=== PATIENT | female | born 1925 | race Caucasian/White ===

== ENCOUNTER 2016-11-09 16:46 | Emergency (ER) | payer MEDICARE, OTHER ==
[~2016-11-09] VITALS: Ht 141 cm; Wt 37.5 kg
[~2016-11-09 16:46] MED LIST: BRIM5DRO2 BOTH_EYES; LIPA1CAP PO; METO25TA6 PO; OXYC5TAB72 PO; PANT40TA3 PO; POLY17PO6 PO; WARF2TAB PO
[2016-11-09 17:03] VITALS: BP 115/59; PULSE 66; RESP 16; O2SAT 97
[2016-11-09] MEDS ORDERED: Ondansetron 2 mg/mL 2 mL Inj IV PRN (18:25)
--- NOTE | 2016-11-09 18:27 | ED.REPORT ---
HPI-General Illness Date of Service Nov 09, 2016 ED Provider: Lior Castillo MD An 89 year old female with a medical history including thoracic compression fractures, COPD, hypertension, and atrial fibrillation s/p pacemaker placement on Warfarin presents to the ED accompanied by her family with right-sided thoracic back pain onset three days ago. The pain began as "burning" between her shoulder blades, which slowly moved to the right. It is exacerbated by movement. The patient also reports shortness of breath and mild bilateral leg swelling (R>L). She denies fever, chest pain, recent trauma/injury, or other symptoms. The patient's Warfarin dose was recently increased but she has not been taking the full prescribed amount. She has had similar symptoms in the past. Nursing Notes Stated Complaint: RIGHT SHOULDER PAIN Chief Complaint: Back Pain or Injury Nursing Notes Reviewed: Yes Allergies: Coded Allergies: Penicillins (Verified Allergy, Severe, pt took once, rash all over body, ) erythromycin ethylsuccinate (Verified Allergy, Severe, 11/09/16) Cephalosporins (Verified Allergy, Unknown, 11/09/16) Sulfa (Sulfonamide Antibiotics) (Verified Allergy, Unknown, 11/09/16) Scheduled Brimonidine Tartrate (Alphagan P) 5 Ml Drops 1 GTT BOTH_EYES BID Lipase/Protease/Amylase (Creon DR) 6,000 Unit Capsule 1 CAPSULE PO TIDAC Metoprolol Tartrate (Metoprolol Tartrate) 25 Mg Tablet 12.5 MG PO BID Pantoprazole DR (Pantoprazole DR) 40 Mg Tablet.dr 40 MG PO DAILYAC Warfarin Sodium (Coumadin) 2 Mg Tablet 2 MG PO OT@17 Scheduled PRN Polyethylene Glycol 3350 (Miralax) 17 Gm Powd.pack 17 GM PO DAILY PRN PRN For Constipation oxyCODONE (oxyCODONE) 5 Mg Tablet 5 MG PO QID PRN PRN For Moderate Pain General Time Seen by MD: 18:24 Chief Complaint Back pain Hx Obtained From: Patient Arrived By: Walk-in Onset Occurred: 3 days ago Symptom Duration: Since onset Location: : Back Quality: Burning, Painful Severity: Current: Moderate Severity: Maximum: Moderate Exacerbated by: Moving affected area Pertinent Negative: Relieved by nothing Context Related History: Reports COPD, Reports GERD Recent Healthcare: No recent doctor visit Similar Sx Previous: Yes Past Medical History Past Medical History 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 Past Medical History Pacemaker insertion for atrial fibrillation in 2006 (anticoagulated on warfarin) Bladder infection Heartburn Hiatal hernia Glaucoma Multiple compression fracture - T11 and L1 Pancreas mass Reports: COPD, GERD, Hypertension, Transient ischemic attack Reports: Urinary tract infection Past Surgical History Bladder suspension Reports: Appendectomy, Cholecystectomy, Hysterectomy Reports: Pacemaker insertion Family History Negative for pancreas cancer Smoking History Current Some Day Smoker Social History Alcohol Use: Denies alcohol use Drug Use: Denies drug use Other Social History: Good social support, Lives alone Ambulatory Status Cane Review of Systems Full Review of Systems Constitutional: Denies: Fever Respiratory: Reports: Shortness of breath, Denies: Non-productive cough GI: Denies: Diarrhea, Vomiting Musculoskeletal: Reports: Back pain (Right-sided thoracic), Extremity swelling (Bilateral legs R>L) Complete sys rev & neg: except as marked. Physical Exam Vital Signs Vital Signs Date Time Temp Pulse Resp B/P Pulse Ox O2 Delivery O2 Flow Rate FiO2 11/09/16 21:23 36.8 60 20 134/90 97 Room Air 11/09/16 21:00 60 20 134/90 97 Room Air 11/09/16 20:12 61 16 121/73 98 Room Air 11/09/16 17:03 36.8 66 16 115/59 97 Room Air Initial VS: Reviewed Skin: Warm, Dry Neurologic: Alert, Oriented Psychiatric: Mood/affect normal, Behavior normal General/Constitutional: Awake, Alert Head / Eyes: Atraumatic, Normocephalic Respiratory / Chest: Breath sounds = bilat, No respiratory distress Wheezing / Retractions: Positive: Wheezing moderate (Scattered) Cardiovascular: Heart rate NL, Regular rhythm Heart Sounds / Murmur: Positive: Systolic murmur present.. (III/) Abdomen: Soft, Non-tender Flank / Spine / Paraspinal: Positive: Thoracic spine tender... (T-6) Lower Extremity / Pelvis / MS: Atraumatic Mild pitting pedal edema No cords present Interpretation & Diagnostics Lab Results Interpretation Result Diagram: 11/09/16184411/09/161844 Test 11/09/16 18:45 11/09/16 19:35 White Blood Count 7.3th/mm3 (3.8-10.1) Red Blood Count 3.88mil/mm3 (3.90-5.20) Hemoglobin 12.3g/dL (12.0-15.6) Hematocrit 36.7% (35.0-46.0) Mean Corpuscular Volume 94.6fL (81-100) Mean Corpuscular Hemoglobin 31.7pg (27.0-35.0) Mean Corpuscular Hemoglobin Concent 33.5% (32.0-37.0) Red Cell Distribution Width 14.6% (12.3-15.4) Platelet Count 196bil/L (150-400) Neutrophils (%) (Auto) 57.2% (40-74) Lymphocytes (%) (Auto) 31.0% (14-46) Monocytes (%) (Auto) 9.0% (4-12) Eosinophils (%) (Auto) 2.0% (0-5) Basophils (%) (Auto) 0.7% (0-3) Prothrombin Time 14.9sec (8.1-12.5) Prothromb Time International Ratio 1.38ratio Sodium Level 137mEq/L (134-144) Potassium Level 4.7mEq/L (3.5-5.2) Chloride Level 101mEq/L (97-108) Carbon Dioxide Level 22mmol/L (18-29) Blood Urea Nitrogen 32mg/dL (8-27) Creatinine 1.13mg/dL (0.57-1.00) Estimat Glomerular Filtration Rate 65mL/min (>59) Glucose Level 107mg/dL (60-99) Calcium Level 10.6mg/dL (8.5-10.1) Magnesium Level 2.1mg/dL (1.6-2.6) Total Bilirubin 0.2mg/dL (0.0-1.2) Aspartate Amino Transf (AST/SGOT) 21U/L (0-50) Alanine Aminotransferase (ALT/SGPT) 9U/L (0-32) Alkaline Phosphatase 99U/L (25-165) Troponin T < 0.010ug/L (0.0-0.011) Total Protein 7.4g/dL (6.4-8.4) Albumin 4.2g/dL (3.4-5.0) Hold Lane Top Tube Received (Received) Urine Color Yellow (YELLOW) Urine Appearance Clear (CLEAR,HAZY) Urine pH 5.5 (5.0-8.0) Urine Specific [place] 1.020 (1.003-1.035) Urine Protein Negativemg/dL (NEG,TRACE) Urine Glucose (UA) Negativemg/dL (NEGATIVE) Urine Ketones Negativemg/dL (NEGATIVE) Urine Occult Blood Trace (NEGATIVE) Urine Nitrite Negative (NEGATIVE) Urine Bilirubin Negative (NEGATIVE) Urine Urobilinogen Normalmg/dL (NORMAL) Urine Leukocyte Esterase Negative (NEGATIVE) Urine RBC 0-2/hpf (0-2) Urine WBC 0-5/hpf (0-5) Urine Epithelial Cells Moderate/hpf (NONE-MOD) Urine Crystals None seen (NONE SEEN) Urine Bacteria None/hpf (NONE-FEW) Urine Hyaline Casts None/lpf (NONE) Urine Granular Casts None seen (NONE SEEN) Urine Waxy Casts None seen (NONE SEEN) Urine Red Blood Cell Casts None seen (NONE SEEN) Urine White Blood Cell Casts None seen (NONE SEEN) Urine Mucus None seen (None Seen) Urine Trichomonas None seen (NONE SEEN) Urine Yeast None (NONE SEEN) Urinalysis Comment None Urine Culture Reflexed Not indicated ECG Interpretation ECG Interpretation: Paced rhythm rate 62 Anterior fascicular block Nothing acute Time: 18:54 Interpreted by: ED physician X-Ray Chest Interpretation Chest Xray Interpretation: IMPRESSION: No acute pulmonary process. Dictated by: Dorene Jacobs M.D. on 11/09/2016 at 19:03 View: Portable, 1 view Interpretation / Wet Read by: Interpret - Radiologist X-Ray Interpretation Xray Interpretation: IMPRESSION: Significant multiple degenerative changes as well as osteopenia with limited evaluation. There is suspected to be new compression deformity at approximate level of T5-6. Multilevel chronic deformities are noted. Dictated by: Doreen Jacobs M.D. on 11/09/2016 at 20:46 Study Performed: Thoracic Spine, 3 View Interpretation / Wet Read by: Interpret - Radiologist Re-Eval/Medical Decision Source of Hx: Old records Time of Eval: 19:57 Patient Status: Condition improved Re-Evaluation/Progress Note: Discussed with patient plan for additional x-rays. Time of Eval: 21:12 Patient Status: Condition improved Re-Evaluation/Progress Note: Discussed with patient x-ray and lab results, diagnosis, and plan for discharge. Follow-up and return to the ER instructions given. Patient agrees with plan for care and all questions were addressed. Counseled Regarding: Diagnosis, Lab results, Need for follow-up, When/why to return to ED Discharge & Departure Primary Impression: Thoracic compression fracture Encounter type: initial encounter Fracture type: closed Qualified Code: S22.000A - Wedge compression fracture of unspecified thoracic vertebra, initial encounter for closed fracture Disposition: Home Discharge Condition All VS Reviewed: Yes Condition: Improved Patient Instructions: Vertebral Compression Fracture (ED) Additional Instructions: Thanks for trusting us with your care tonite. We found a vertebral compression fracture, checks for heart and lungs were OK. Protime is low, indicating warfarin dosing is not sufficient (or not being taken). Activity as tolerated, may use tylenol for pain, or if needed percocet 1/2 or 1 every 4-6 hours, watch for constipation from this medication. Referrals: Vinod Serrato MD (PCP) Jacintoibe Attestation Portions of this note were transcribed by Kimberly Palma. I, Dr. Castillo, personally performed the history, physical exam, and medical decision-making; I reviewed and confirmed the accuracy of the information in the transcribed note. Signed by: Ivet Lipscomb, 11/09/2016, 22:15 copies to: Vinod Serrato MD, Donald L MD Nov 09, 2016 18:27 KIMBERLY PALMA Nov 09, 2016 18:33
--- NOTE | 2016-11-09 19:05 | DRSVH ---
PROCEDURE: X-RAY CHEST ONE VIEW, PORTABLE ([id number]) INDICATIONS: R scapular pain TECHNIQUE: One view of the chest was acquired. COMPARISON: [facility], CR, XR CHEST 1VW (PORTABLE), 10/10/2015, 10:43. [facility], CR, XR CHEST 1VW (PORTABLE), 09/27/2015, 13:52. FINDINGS: Surgical changes and devices: Pacemaker. Lungs and pleura: No pleural effusions or pneumothorax. Lungs are hyperexpanded. Chronic interstitia l changes are present. Mediastinum: Mediastinal contours appear normal. Heart size is mildly prominent. Bones and chest wall: No suspicious bony lesions. Overlying soft tissues appear unremarkable. Dege nerative changes within the right shoulder and acromioclavicular joints are noted. IMPRESSION: No acute pulmonary process. Dictated by: Doreen Jacobs M.D. on 11/09/2016 at 19:03 Approved by: Doreen Jacobs M.D. on 11/09/2016 at 19:04
[2016-11-09 19:15] LABS: BASOPHILS % (AUTO) 0.7 % (0-3); Mean Corpuscular Hemoglobin 31.7 pg (27.0-35.0); Mean Corpuscular Volume 94.6 fL (81-100); NEUTROPHILS % (AUTO) 57.2 % (40-74); Platelet Count 196 bil/L (150-400)
[2016-11-09 19:27] LABS: INR 1.38 ratio
[2016-11-09 19:36] LABS: TROPONIN T < 0.010 ug/L (0.0-0.011)
[2016-11-09 19:43] LABS: Magnesium 2.1 mg/dL (1.6-2.6)
[2016-11-09 19:51] LABS: APPEARANCE,URINE CLEAR (CLEAR,HAZY); COLOR,URINE YELLOW (YELLOW); OCCULT BLOOD,URINE TRACE (NEGATIVE); PH,URINE 5.5 (5.0-8.0); UROBILINOGEN,URINE NORMAL (NORMAL)
[2016-11-09 20:12] VITALS: BP 121/73; PULSE 61; RESP 16; O2SAT 98
--- NOTE | 2016-11-09 20:51 | DRSVH ---
PROCEDURE: X-RAY THORACIC SPINE, 3 VIEWS INDICATIONS: back pain TECHNIQUE: 3 views of the thoracic spine were acquired. COMPARISON: [facility], CR, XR THORACIC SPINE 3VW, 10/10/2015, 16:33. [facility], CT, CT THORACIC SPINE WO CON, 10/10/2015, 18:33. FINDINGS: Bones: Diffuse osteopenia is present. There is significant multilevel degenerative changes are presen t. Multilevel compression deformities are present. There is suspected to be an increased deformity wi thin the upper to mid thoracic spine and approximately the level of T5/6. Soft tissues: No paravertebral stripe thickening. IMPRESSION: Significant multiple degenerative changes as well as osteopenia with limited evaluation. There is suspected to be new compression deformity at approximate level of T5-6. Multilevel chronic d eformities are noted. Dictated by: Doreen Jacobs M.D. on 11/09/2016 at 20:46 Approved by: Doreen Jacobs M.D. on 11/09/2016 at 20:49
[2016-11-09 21:00] VITALS: BP 134/90; PULSE 60; RESP 20; O2SAT 97
[2016-11-09] MEDS ORDERED: _oxyCODONE/APAP 5-325 mg Tablet PO PRN (21:15)
[2016-11-09 21:23] VITALS: BP 134/90; PULSE 60; RESP 20; O2SAT 97
== END 2016-11-09 21:39 | disposition home or self-care (01) ==
LOC: SED 16:46
DX: S22.000A Wedge compression fracture of unspecified thoracic vertebra, initial encounter for closed fracture (principal); X58.XXXA Exposure to other specified factors, initial encounter; Y93.89 Activity, other specified; Y92.9 Unspecified place or not applicable; Y99.8 Other external cause status; J44.9 Chronic obstructive pulmonary disease, unspecified; I10 Essential (primary) hypertension; K21.9 Gastro-esophageal reflux disease without esophagitis; Z95.0 Presence of cardiac pacemaker; Z79.01 Long term (current) use of anticoagulants; Z88.0 Allergy status to penicillin; Z88.1 Allergy status to other antibiotic agents; Z88.2 Allergy status to sulfonamides
CPT/HCPCS: 36415; 71010; 72072; 80053; 81000; 83735; 84484; 85025; 85610; 93005; 96374; 99284; J2405

== ENCOUNTER 2016-12-09 13:43 | Emergency (ER) | payer MEDICARE, OTHER ==
[2016-12-09] VITALS (8 sets, daily range): BP systolic 76–177; BP diastolic 42–96; PULSE 59–71; RESP 14–24; O2SAT 95–99
[~2016-12-09] VITALS: Ht 152.4 cm; Wt 33.6 kg
[2016-12-09 14:04] LABS: BASOPHILS % (AUTO) 0.6 % (0-3); EOSINOPHILS % (AUTO) 1.3 % (0-5); MONOCYTES % (AUTO) 12.6 % (4-12); Mean Corpuscular Hemoglobin 31.4 pg (27.0-35.0); Mean Corpuscular Volume 95.8 fL (81-100); NEUTROPHILS % (AUTO) 55.8 % (40-74); Platelet Count 200 bil/L (150-400)
[2016-12-09 14:38] LABS: TROPONIN T < 0.010 ug/L (0.0-0.011)
--- NOTE | 2016-12-09 15:11 | DRSVH ---
PROCEDURE: X-RAY CHEST ONE VIEW, PORTABLE ([id number]) INDICATIONS: sob TECHNIQUE: One view of the chest was acquired. COMPARISON: [facility], CR, XR CHEST 1VW (PORTABLE), 11/09/2016, 18:22. FINDINGS: Surgical changes and devices: Pacemaker. Lungs and pleura: No pleural effusions or pneumothorax. Chronic interstitial and emphysematous mcelroy es. Mediastinum: Mediastinal contours appear normal. Heart size is normal. Bones and chest wall: No suspicious bony lesions. Overlying soft tissues appear unremarkable. IMPRESSION: No acute pulmonary process. Dictated by: Doreen aJcobs M.D. on 12/09/2016 at 14:09 Approved by: Doreen Jacobs M.D. on 12/09/2016 at 14:10
--- NOTE | 2016-12-09 15:27 | ED.REPORT ---
HPI-Chest Pain 40 and Over Date of Service December 09, 2016 ED Provider: Adam Garcia MD The patient is an 89 year old female with history of atrial fibrillation s/p pacemaker - on Warfarin, hypertension, COPD, prior TIA, pancreatic mass, and GERD, who was brought to the emergency department by EMS for substernal chest pain that has been constant all day. Her pain radiates into both shoulders. Her pain is worse with movement or deep breaths. When medics arrived the patient was 90 % on room air. Her oxygen saturation improved to 100 % on 2 L. Nursing Notes Stated Complaint: CHEST PAIN Chief Complaint: Chest Pain Nursing Notes Reviewed: Yes Allergies: Coded Allergies: Penicillins (Verified Allergy, Severe, pt took once, rash all over body, ) erythromycin ethylsuccinate (Verified Allergy, Severe, 11/09/16) Cephalosporins (Verified Allergy, Unknown, 11/09/16) Sulfa (Sulfonamide Antibiotics) (Verified Allergy, Unknown, 11/09/16) Scheduled Brimonidine Tartrate (Alphagan P) 5 Ml Drops 1 GTT BOTH_EYES BID Lipase/Protease/Amylase (Creon DR) 6,000 Unit Capsule 1 CAPSULE PO TIDAC Metoprolol Tartrate (Metoprolol Tartrate) 25 Mg Tablet 12.5 MG PO BID Pantoprazole DR (Pantoprazole DR) 40 Mg Tablet.dr 40 MG PO DAILYAC Warfarin Sodium (Coumadin) 2 Mg Tablet 2 MG PO OT@17 Scheduled PRN Polyethylene Glycol 3350 (Miralax) 17 Gm Powd.pack 17 GM PO DAILY PRN PRN For Constipation oxyCODONE (oxyCODONE) 5 Mg Tablet 5 MG PO QID PRN PRN For Moderate Pain General Time Seen by MD: 15:25 Chief Complaint Chest pain Hx Obtained From: Patient, Daughter, EMS Arrived By: Ambulance Sudden in Onset?: Yes Onset Occurred: 9 - 12 hours ago Symptom Duration: Since onset Location: : Substernal Radiation: : Shoulder left: Shoulder right Severity: Current: Mild Severity: Maximum: Moderate Recent Healthcare: No recent doctor visit, No recent hospitalization Similar Sx Previous: No Past Medical History Past Medical History 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 Past Medical History Pacemaker insertion for atrial fibrillation in 2005 (anticoagulated on warfarin) Hiatal hernia Glaucoma Multiple compression fracture - T11 and L1 Pancreas mass Reports: COPD, GERD, Hypertension, Transient ischemic attack Reports: Urinary tract infection Past Surgical History Bladder suspension Reports: Appendectomy, Cholecystectomy, Hysterectomy Reports: Pacemaker insertion Family History Negative for pancreas cancer Smoking History Current Some Day Smoker Social History Alcohol Use: Denies alcohol use Drug Use: Denies drug use Other Social History: Good social support, Lives alone, Local resident Ambulatory Status Cane Review of Systems Cardiovascular: Reports: Chest pain Complete sys rev & neg: except as marked. Physical Exam Initial Vital Signs Vital Signs (First) Date Time Temp Pulse Resp B/P Pulse Ox O2 Delivery O2 Flow Rate FiO2 12/09/16 13:47 36.4 70 24 76/55 98 Room Air 12/09/16 14:20 2 Initial VS: Reviewed Head / Eyes: Atraumatic, Normocephalic, PERRL ENT: Mucous membranes moist, Conjunctiva normal, No scleral icterus Neck: Supple, Non-tender, Full range of motion Lymphatic: No lymphadenopathy Extremities: Vascular intact, Neuro intact, No swelling, No tenderness Skin: Warm, Dry, No cyanosis Neurologic: Alert, Oriented, Nonfocal Psychiatric: Mood/affect normal, Behavior normal, Normal thought content General/Constitutional: Awake, Alert, No acute distress, Well appearing, Cooperative Respiratory / Chest: Breath sounds NL, Breath sounds = bilat, No respiratory distress, No rales, No rhonchi, No wheezing, No stridor Left sternal costal margin tenderness. Cardiovascular: Heart rate NL, Regular rhythm, Heart sounds NL, No gallop, No murmurs, No rubs, Peripheral circulation NL, Pulses = bilaterally, No gross BP differential Abdomen: Atraumatic, Soft, Non-tender, McBurney's non-tender, No guarding, No rebound, BS normoactive, No distention, No hernia, No palpable mass Interpretation & Diagnostics Lab Results Interpretation Result Diagram: 12/09/16 1401 12/09/16 1401 Test 12/09/16 14:01 White Blood Count 7.7th/mm3 (3.8-10.1) Red Blood Count 4.04mil/mm3 (3.90-5.20) Hemoglobin 12.7g/dL (12.0-15.6) Hematocrit 38.7% (35.0-46.0) Mean Corpuscular Volume 95.8fL (81-100) Mean Corpuscular Hemoglobin 31.4pg (27.0-35.0) Mean Corpuscular Hemoglobin Concent 32.8% (32.0-37.0) Red Cell Distribution Width 14.5% (12.3-15.4) Platelet Count 200bil/L (150-400) Neutrophils (%) (Auto) 55.8% (40-74) Lymphocytes (%) (Auto) 29.4% (14-46) Monocytes (%) (Auto) 12.6% (4-12) Eosinophils (%) (Auto) 1.3% (0-5) Basophils (%) (Auto) 0.6% (0-3) Sodium Level 138mEq/L (134-144) Potassium Level 4.7mEq/L (3.5-5.2) Chloride Level 103mEq/L (97-108) Carbon Dioxide Level 22mmol/L (18-29) Blood Urea Nitrogen 18mg/dL (8-27) Creatinine 1.08mg/dL (0.57-1.00) Estimat Glomerular Filtration Rate 68mL/min (>59) Glucose Level 104mg/dL (60-99) Calcium Level 10.5mg/dL (8.5-10.1) Magnesium Level 2.0mg/dL (1.6-2.6) Total Bilirubin 0.6mg/dL (0.0-1.2) Aspartate Amino Transf (AST/SGOT) 22U/L (0-50) Alanine Aminotransferase (ALT/SGPT) 10U/L (0-32) Alkaline Phosphatase 95U/L (25-165) Troponin T < 0.010ug/L (0.0-0.011) Pro-B-Type Natriuretic Peptide 366.2pg/mL (0-738) Total Protein 7.4g/dL (6.4-8.4) Albumin 4.0g/dL (3.4-5.0) ECG Interpretation ECG Interpretation: Normal sinus rhythm with a rate of 67 Time: 15:00 Interpreted by: ED physician X-Ray Chest Interpretation Chest Xray Interpretation: IMPRESSION: No acute pulmonary process. Dictated by: Doreen Jacobs M.D. on 12/09/2016 at 14:09 Interpretation / Wet Read by: Interpret - Radiologist Re-Eval/Medical Decision Source of Hx: Old records, Family Time of Eval: 15:49 Re-Evaluation/Progress Note: Discussed results, diagnosis, and plan for discharge. All questions were addressed. Counseled Regarding: Diagnosis, Lab results, Need for follow-up, When/why to return to ED Discharge & Departure Primary Impression: Chest wall pain Disposition: Home Discharge Condition All VS Reviewed: Yes Condition: Stable Additional Instructions: Thank you for entrusting us with your care today. Your workup today included a chest x-ray, EKG, and labs. The results are reassuring. There is no evidence of a heart attack or pneumonia. You should use Tylenol as needed for your discomfort. You can take 1 regular strength Tylenol pill at a time up to every 6 hours. Followup with your regular doctor in a few days if your pain continues. Return to the emergency department for any new or concerning symptoms. Referrals: Vinod Serrato MD (PCP) Scribe Attestation Portions of this note were transcribed by Myriam Steiner. I, Dr. Garcia personally performed the history, physical exam and medical decision-making; I reviewed and confirmed the accuracy of the information in the transcribed note. Signed by: Ivet Munguia, 12/09/2016 at 1610. copies to: Vinod Serrato MD, Kirk H MD December 09, 2016 15:26 Myriam Steiner December 09, 2016 15:52
== END 2016-12-09 16:28 | disposition home or self-care (01) ==
LOC: SED 13:43
DX: R07.89 Other chest pain (principal); I11.9 Hypertensive heart disease without heart failure; I48.91 Unspecified atrial fibrillation; J44.9 Chronic obstructive pulmonary disease, unspecified; K21.9 Gastro-esophageal reflux disease without esophagitis; F17.200 Nicotine dependence, unspecified, uncomplicated; Z86.73 Personal history of transient ischemic attack (TIA), and cerebral infarction without residual deficits; Z95.0 Presence of cardiac pacemaker; Z79.01 Long term (current) use of anticoagulants; Z88.0 Allergy status to penicillin; Z88.1 Allergy status to other antibiotic agents; Z88.2 Allergy status to sulfonamides

== ENCOUNTER 2017-01-16 14:42 | Observation (INO) | payer MEDICARE, OTHER ==
[~2017-01-16] VITALS: Ht 152.4 cm; Wt 34.2 kg
--- NOTE | 2017-01-16 14:40 | ED.REPORT ---
HPI-Stroke / CVA Jan 16, 2017 ED Provider: Dr. Garcia Pt is a 52 year old female with a recent hx of TIA 4 months ago, afib on Warfarin and a pacemaker presenting to the ED via EMS complaining of sudden onset confusion at 1410. Her daughter reports that they were talking to her at lunch, and then the pt said "I'm starting to feel dizzy" and then suddenly began speaking "gibberish". Her daughter reports that the only intelligible word the pt was saying was "seagull". Denies any other symptoms at this time. Nursing Notes Stated Complaint: POSS CVA Chief Complaint: Confusion Nursing Notes Reviewed: Yes Allergies: Coded Allergies: Penicillins (Verified Allergy, Severe, pt took once, rash all over body, ) erythromycin ethylsuccinate (Verified Allergy, Severe, 01/16/17) Cephalosporins (Verified Allergy, Unknown, 01/16/17) Sulfa (Sulfonamide Antibiotics) (Verified Allergy, Unknown, 01/16/17) Scheduled Brimonidine Tartrate (Alphagan P) 5 Ml Drops 1 GTT BOTH_EYES QAM (Reported) Metoprolol Tartrate (Metoprolol Tartrate) 25 Mg Tablet 25 MG PO BID (Reported) Warfarin Sodium (Warfarin Sodium) 2 Mg Tablet 3-4 MG PO DAILY (Reported) Alternate 3mg one day, 4mg next day Scheduled PRN Acetaminophen (Acetaminophen) 325 Mg Tablet 0.5 TAB PO Q4H PRN PRN For Pain ( Reported) General Time Seen by Provider: 14:42 Chief Complaint Confusion Hx Obtained From: Patient, Daughter, EMS Arrived By: Ambulance Time last known well 1410 Sudden in Onset?: Yes Progression Since Onset: Resolved Severity: Current: No pain currently Severity: Maximum: No pain Recent Healthcare: No recent doctor visit, No recent hospitalization Similar Sx Previous: Yes Risk Factors NIH Stroke Scale Level of Consciousness: Alert and responsive (0) Ask Month & Age: Both questions right (0) Open/Close Eyes/Hand Social Work Faculty Member: Performs both tasks (0) Horizontal EO Movements: None (0) Visual Patel: No visual loss (0) Facial Palsy: Normal symmetry (0) Right Arm Motor Drift (10s): No drift 10 sec (0) Left Arm Motor Drift (10s): No drift 10 sec (0) Right Leg Motor Drift (5s): No drift 5 sec (0) Left Leg Motor Drift (5s): No drift 5 sec (0) Limb Ataxia FNF/Heel-Tiwari: No ataxia (0) Sensation (Arms/Legs/Face): No sensory loss (0) Language Aphasia: No aphasia, normal (0) Dysarthria: No dysarthria, normal (0) Extinction/Inattention: No exctinct/inattent (0) NIHSS Score: 0 Time NIHSS Performed: 12:51 Past Medical History Past Medical History Notes: Stock Supervisor: Dr. Saldaña Past Medical History Pacemaker insertion for atrial fibrillation in 2006 (anticoagulated on warfarin) Hiatal hernia Glaucoma Multiple compression fracture - T11 and L1 Pancreas mass Reports: COPD, GERD, Hypertension, Transient ischemic attack, Denies: Diabetes mellitus Reports: Urinary tract infection Past Surgical History Bladder suspension Reports: Appendectomy, Cholecystectomy, Hysterectomy Reports: Pacemaker insertion Family History Negative for pancreas cancer Smoking History Current Some Day Smoker Social History Alcohol Use: Denies alcohol use Drug Use: Denies drug use Other Social History: Good social support, Lives alone, Local resident Ambulatory Status Cane Review of Systems Review of Systems Note: + Speech changes Constitutional: Denies: Fever Respiratory: Denies: Shortness of breath Cardiovascular: Denies: Chest pain GI: Denies: Abdominal pain, Vomiting Neurologic: Reports: Confusion Complete sys rev & neg: except as marked. Physical Exam Initial Vital Signs Vital Signs (First) Date Time Temp Pulse Resp B/P Pulse Ox O2 Delivery O2 Flow Rate FiO2 01/16/17 14:48 36.3 65 21 148/60 99 Room Air Initial VS: Reviewed ENT: Mucous membranes moist, Conjunctiva normal, No scleral icterus Abdomen / GI: Soft, Non-tender, No guarding, No rebound, No distention Extremities: Vascular intact, Neuro intact, No swelling, No tenderness Skin: Warm, Dry, No cyanosis Psychiatric: Mood/affect normal, Behavior normal, Normal thought content General/Constitutional: Awake, Alert, No acute distress, Well appearing Head / Eyes: Atraumatic, Normocephalic, PERRL, EOMI, No nystagmus Neck: Atraumatic, Supple Respiratory / Chest: Breath sounds NL, Breath sounds = bilat, No respiratory distress, No rales, No rhonchi, No wheezing Cardiovascular: Heart rate NL, Regular rhythm, Heart sounds NL, No murmurs, Peripheral circulation NL Neurologic: Oriented X3, Speech NL, No motor deficits, No sensory deficits, CN II - XII intact, Reflexes equal bilat, Cerebellar NL Interpretation & Diagnostics Lab Results Interpretation Result Diagram: 01/16/17 1504 01/16/17 1504 Test 01/16/17 15:04 01/16/17 15:40 White Blood Count 6.1th/mm3 (3.8-10.1) Red Blood Count 3.96mil/mm3 (3.90-5.20) Hemoglobin 12.5g/dL (12.0-15.6) Hematocrit 38.0% (35.0-46.0) Mean Corpuscular Volume 96.0fL (81-100) Mean Corpuscular Hemoglobin 31.6pg (27.0-35.0) Mean Corpuscular Hemoglobin Concent 32.9% (32.0-37.0) Red Cell Distribution Width 14.6% (12.3-15.4) Platelet Count 219bil/L (150-400) Neutrophils (%) (Auto) 52.2% (40-74) Lymphocytes (%) (Auto) 33.4% (14-46) Monocytes (%) (Auto) 11.1% (4-12) Eosinophils (%) (Auto) 2.3% (0-5) Basophils (%) (Auto) 0.8% (0-3) Prothrombin Time 24.6sec (8.1-12.5) Prothromb Time International Ratio 2.26ratio Activated Partial Thromboplast Time 36.7sec (22.8-33.0) Sodium Level 138mEq/L (134-144) Potassium Level 5.1mEq/L (3.5-5.2) Chloride Level 103mEq/L (97-108) Carbon Dioxide Level 20mmol/L (18-29) Blood Urea Nitrogen 20mg/dL (8-27) Creatinine 1.21mg/dL (0.57-1.00) Estimat Glomerular Filtration Rate 60mL/min (>59) Glucose Level 108mg/dL (60-99) Calcium Level 10.1mg/dL (8.5-10.1) Total Bilirubin 0.3mg/dL (0.0-1.2) Aspartate Amino Transf (AST/SGOT) 22U/L (0-50) Alanine Aminotransferase (ALT/SGPT) 10U/L (0-32) Alkaline Phosphatase 91U/L (25-165) Troponin T < 0.010ug/L (0.0-0.011) Total Protein 6.7g/dL (6.4-8.4) Albumin 4.0g/dL (3.4-5.0) Hold Lane Top Tube Received (Received) ECG Interpretation ECG Interpretation: Atrial-paced rhythm. LAFB. Anteroseptal infarct, age indeterminate. Lateral leads also involved. Time: 15:39 Interpreted by: ED physician Normal ECG Interpretation: Normal rate (66) CT Head Interpretation IMPRESSION: 1. No CT evidence of acute intracranial pathology. 2. Generalized cerebral and cerebellar atrophy. 3. Findings and recommendations discussed with Dr. Garcia via telephone ([phone]) at 2:55 PM on 01/16/2017. This study fulfills neurological imaging criteria for inclusion or exclusion of acute stroke therapies based on available published neurological imaging guidelines. Dictated by: Vikram Pantoja M.D. on 01/16/2017 at 14:53 Study: Head CT no contrast Interpretation / Wet Read by: Interpret - Radiologist, Discussed w radiologist Re-Eval/Medical Decision Re-Evaluation/Progress : Time of Eval: 15:07 Patient Status: Condition improved Re-Evaluation/Progress Note: Discussed plan for admission. Pt understands and agrees with plan. Consultation : Referral / Consult Name: Joselyn Vela MD Consulted With: Hospitalist Call Returned at: 17:15 Research Rn Spec: Will see patient, Agrees with plan, Accepts admit Counseled Regarding: Diagnosis, Lab results, Need for follow-up, When/why to return to ED Patient Discharge & Departure Impression: Primary Impression: TIA (transient ischemic attack) Transient cerebral ischemia type: unspecified Qualified Code: G45.9 - Transient cerebral ischemic attack, unspecified Disposition: ADMITTED TO HOSPITAL Discharge Condition All VS Reviewed: Yes Condition: Improved Referrals: Vinod Serrato MD (PCP) Scribe Attestation Portions of this note were transcribed by Pallavi Mir. I, Dr. Garcia personally performed the history, physical exam and medical decision-making; I reviewed and confirmed the accuracy of the information in the transcribed note. Signed by: Ivet Herrera, 01/16/2017 at 1721. copies to: Vinod Serrato MD, Kirk H MD Jan 16, 2017 14:40 PALLAVI MIR Jan 16, 2017 14:42
[2017-01-16 14:48] VITALS: BP 148/60; PULSE 65; RESP 21; O2SAT 99
--- NOTE | 2017-01-16 14:59 | DRSVH ---
PROCEDURE: CT BRAIN (TPA) ([id number]) INDICATIONS: Stroke TECHNIQUE: Noncontrast 4.5 mm thick angled axial sections acquired from the foramen magnum to the vertex, with c oronal reformats. COMPARISON: [facility], CT, CT ABD PELVIS WO CON, 10/13/2015, 12:07. FINDINGS: Image quality: Excellent. CSF spaces: Basal cisterns are patent. No extra-axial fluid collections. Ventricles are normal in size and shape. Brain: No midline shift. No intracranial masses or hemorrhage. Chris-white matter interface is norm al. Generalized cerebral and cerebellar atrophy. Periventricular deep white matter chronic benign is chemic change. Skull and face: Calvarium and visualized facial bones are intact, without suspicious lesions. Sinuses: Visualized sinuses and mastoids are clear. IMPRESSION: 1. No CT evidence of acute intracranial pathology. 2. Generalized cerebral and cerebellar atrophy. 3. Findings and recommendations discussed with Dr. Garcia via telephone ([phone]) at 2:55 PM on . This study fulfills neurological imaging criteria for inclusion or exclusion of acute stroke therapie s based on available published neurological imaging guidelines. Dictated by: Vikram Pantoja M.D. on 01/16/2017 at 14:53 Approved by: Vikram Pantoja M.D. on 01/16/2017 at 14:57
[2017-01-16 15:09] LABS: BASOPHILS % (AUTO) 0.8 % (0-3); EOSINOPHILS % (AUTO) 2.3 % (0-5); MONOCYTES % (AUTO) 11.1 % (4-12); Mean Corpuscular Hemoglobin 31.6 pg (27.0-35.0); NEUTROPHILS % (AUTO) 52.2 % (40-74); Platelet Count 219 bil/L (150-400)
[2017-01-16 15:16] VITALS: BP 148/60; PULSE 61; RESP 16; O2SAT 98
[2017-01-16 15:30] LABS: INR 2.26 ratio
[2017-01-16 15:39] LABS: TROPONIN T < 0.010 ug/L (0.0-0.011)
[2017-01-16] MEDS ORDERED: METO25TA6 PO (17:10)
[2017-01-16] MEDS ORDERED: WARF2TAB7 PO (17:10)
[2017-01-16] MEDS ORDERED: ACET325T51 PO (17:11)
[2017-01-16] MEDS ORDERED: Ondansetron 2 mg/mL 2 mL Inj IVPUSH PRN (17:15)
[2017-01-16] MEDS ORDERED: Labetalol 5 mg/mL 4 mL Inj IVPUSH PRN (17:15)
[2017-01-16] MEDS ORDERED: Alum-Mag Hydrox-Simeth 30 mL Suspension PO PRN (17:15)
[2017-01-16] MEDS ORDERED: Polyethylene Glycol (PEG) 17 Gm Powder PO PRN (17:15)
[2017-01-16 17:38] VITALS: PULSE 64; RESP 14; O2SAT 98
--- NOTE | 2017-01-16 17:51 | PCM.HPMED ---
Subjective Date of Service Jan 16, 2017 Primary Provider: Admitting Physician: Pedro Ames MD Primary Care Physician: Vinod Serrato MD Attending Physician: Pedro Ames MD Chief Complaint: difficulty with speech History of Present Illness: Mrs. Rhodes is a 89-year-old female known history of chronic atrial fibrillation on chronic ant- Coagulation status post pacemaker placement who presents to the emergency department with speech disorder disturbance that began about 2-3 hours prior to arrival. Symptoms have been fluctuating. Action now they have completely resolved. Initially she stated the main issue was her being able to get her words out. There is no confusion. Again she knew what she wanted say but just could not express it. There is no weakness in the upper or lower extremities no paresthesias no vision or hearing disturbances. She does have some chronic liver dysfunction there is no new acute issues. No headaches. No facial droop noted her daughter was at bedside no other concerns. Considering her history and previous issues with probable TIA we are asked to further evaluation and management. In emergency department complete workup was done . She did have a CT of the head that was negative. Unfortunately MRI could not be done due to her pacemaker. Review of Systems: Patient denies any nausea vomiting dysphagia. Also had a cold temperatures denies any signs of anxiety or depression. No dysuria no chest pain , palpitations orthopnea PND. Allergies Coded Allergies: Penicillins (Verified Allergy, Severe, pt took once, rash all over body, ) erythromycin ethylsuccinate (Verified Allergy, Severe, 01/16/17) Cephalosporins (Verified Allergy, Unknown, 01/16/17) Sulfa (Sulfonamide Antibiotics) (Verified Allergy, Unknown, 01/16/17) Home Medications Warfarin metoprolo Eyedrops l PMH Chronic atrial fibrillation on chronic anticoagulation Osteoporosis multiple spinal compression fractures Previous history of TIA Surgical History Pacemaker placement Family History Noncontributory Social History Hx Alcohol Use: No Hx Substance Use: No Hx Tobacco Use: Yes (smokes 2-3 cigarettes a day ) Smoking Status: Current Some Day Smoker Living Arrangement: Alone Exam Vital Signs Vital Sign - Last Date Time Temp Pulse Resp B/P Pulse Ox O2 Delivery O2 Flow Rate FiO2 01/16/17 17:38 64 14 98 Room Air 01/16/17 15:16 148/60 01/16/17 14:48 36.3 Exam General: No acute distress cooperative HEENT: Head is atraumatic normocephalic, extra occular movements intact, neck is supple, trachea midline, pupils equal round reactive to light Cardiovascular: Regular rate Lungs: Clear to auscultation bilaterally, no wheezing, no crackles Abdomen: Soft. Nontender, nondistended Extremities: No edema, nontender Neurological: Alert and oriented to person place and time, sensation is intact throughout, strength is equal bilaterally upper lower examinees, NIH stroke scale 0 Psychiatric: Appropriate mood and affect Lab and Diagnostics Result Diagram: 01/16/17 1504 01/16/17 1504 Assessment & Plan Expressive aphasia now resolved, TIA versus CVA Patient symptoms have completely resolved. cannot get MRI due to her pacemaker. We will get a carotid ultrasound and echocardiogram ordered. Anyhow patient is fully anticoagulated. We will start her on a statin tonight get a lipid panel in the morning. Regular neuro checks. Optimize blood pressure. We have her on telemetry Chronic atrial fibrillation on chronic anticoagulation Continue with rate control she is on metoprolol. Continue Coumadin. She is status post pacemaker placement Acute kidney injury She seems to be a little dry. We will gently hydrate her recheck kidney function in the morning avoid any nephrotoxic medications CODE STATUS: DO NOT RESUSCITATE DO NOT INTUBATE Disposition: Patient symptoms have resolved I do anticipate discharge in the next 24 hours pending the results of the carotid ultrasound and echocardiogram. I did explain to the family are not sure she will be a surgical candidate anyhow. They did want to proceed with these tests. We will continue with medical management Pain Evaluation: Adequate Pain Control GI Prophylaxis: Proton Pump Inhibitor VTE Prophylaxis: Joselyn Liu MD Jan 16, 2017 17:51
[2017-01-16] MEDS ORDERED: BRIMONIDINE TARTRATE BOTH_EYES SCH (18:00)
--- NOTE | 2017-01-16 18:10 | NUR ---
Admission Patient arrived on unit via gurney accompanied by staff and family. Patient alert and oriented, speech and memory intact. Daughter reported that patient began to speak "[place]" while getting ready to go out to eat and patient was brought to ED by EMS. Patient reported that she has an episode of dizziness while in the ED which has resolved. No neuro deficits detected at this time. Patient denies pain. Reports that she uses a cane at home and has shortness of breath with activity (at baseline). Patient reports afib with chronic warfarin, and a pacemaker, hypertension and COPD.
--- NOTE | 2017-01-16 18:29 | PCM.PHAPRO ---
Progress difficulty with speech Warfarin Management per Pharmacy: Indication: Stroke prophylaxis as patient has atrial fibrillation ([id number]- Vasc = 5) Goal INR: 2-3 Home Dose: 3 mg alternating with 4 mg Age: 89 yo F Weight: 35 kg Labs: Hgb/Hct: 12.5/38 Platelets: 219 INR: 2.26 CT: Negative for bleed MRI: Cannot be performed due to pacemaker Drug Interactions: Pantoprazole (mild to moderate), atorvastatin (mild) - both new starts, pt should have INR monitored twice weekly for 2 weeks due to new meds, admission for possible CVA, and advanced age Recommendation: Hold warfarin tonight as patient took today's dose prior to admission. Pharmacy to continue to monitor and adjust dose as needed. Thank You, Belkis Roberson, Pharm D. eBlkis Roberson Jan 16, 2017 18:29
[2017-01-16] MEDS: 0.9% Sodium Chloride 1,000 ML IV SCH (18:47)
[2017-01-16 18:49] VITALS: BP 163/74; PULSE 65; RESP 18; O2SAT 98
[2017-01-16 20:41] VITALS: BP 164/63; PULSE 60; RESP 18; O2SAT 93
[2017-01-17 01:03] VITALS: BP 143/57; PULSE 65; RESP 16; O2SAT 95
[2017-01-17 01:29] LABS: APPEARANCE,URINE CLEAR (CLEAR,HAZY); COLOR,URINE YELLOW (YELLOW)
[2017-01-17 01:30] LABS: OCCULT BLOOD,URINE TRACE (NEGATIVE); PH,URINE 6.5 (5.0-8.0); UROBILINOGEN,URINE NORMAL (NORMAL)
[2017-01-17 05:40] VITALS: BP 148/73; PULSE 63; RESP 16; O2SAT 92
[2017-01-17 05:49] VITALS: PULSE 70
--- NOTE | 2017-01-17 06:44 | NUR ---
Post void scan Patient up to BSC x 1, post void scan at 0.
[2017-01-17] MEDS: 0.9% Sodium Chloride 1,000 ML IV SCH (07:25)
[2017-01-17] MEDS: Pantoprazole 40 mg ER24 Tablet PO SCH (08:07)
[2017-01-17] MEDS: Brimonidine 0.2% 5 mL Ophthalmic Solution BOTH_EYES SCH (08:13)
[2017-01-17 08:54] VITALS: PULSE 64
--- NOTE | 2017-01-17 09:54 | NUR ---
Evaluation completed/discharge to nsg Please go to "Notes" then click on "Assessments and Notes" (bottom left corner of screen). Then select appropriate discipline tab on top of screen. no further PT; up with nsg with FWW and SBA
--- NOTE | 2017-01-17 12:30 | NUR ---
TONY explained to both pt and her daughter Yani who is at bedside, and was signed. Copy of Tony and Medicare self administered medication information given to pt.
[2017-01-17 12:58] VITALS: BP 131/70; PULSE 73; RESP 18; O2SAT 96
--- NOTE | 2017-01-17 13:09 | NUR ---
Evaluation completed. Please go to "Notes" then click on "Assessments and Notes" (bottom left corner of screen). Then select appropriate discipline tab on top of screen.
[2017-01-17 14:22] LABS: INR 2.3 ratio
--- NOTE | 2017-01-17 14:40 | PCM.PHAPRO ---
Progress Date of Service: Jan 17, 2017 difficulty with speech WARFARIN MANAGEMENT A\ 89YO F with a history of AFIB INR Goal 2-3 Current INR =2.3 Home dose Warfarin 3mg alternating with 4mg P\ Therapeutic and will continue Warfarin 3mg po x1 tonight and check the INR in the AM. [facility] Jan 17, 2017 14:40
--- NOTE | 2017-01-17 14:52 | DRSVH ---
[facility] [address] [place] [address] Echocardiogram Report Name: JANETT MOONEY Study Date: 01/17/2017 Height: 60 in Hospital Exam Location: [facility] Weight: 77 lb Gender: Female BSA: 1.2 m2 : 1925 Age: 89 yrs BP: 148/73 mmHg Reason For Study: TIA Ordering Physician: Performed By: Aleisha [facility]cl[facility] Interpretation Summary 1) Normal left ventricular thickness, size, wall motion, and systolic function (EF 60-65%). 2) Normal right ventricular size and function. Pacemaker lead visualized in the right ventricle. 3) Minimal aortic stenosis present (mean gradient 7.6mmHg, valve area 1.9cm2, severity ratio 0.53). Consider repeat Echo in 3-5 years for serial monitoring, earlier if clinically indicated. 4) No cardiac cause of TIA identified on today's study. 5) No prior echo available for comparison. Procedure: A two-dimensional transthoracic echocardiogram with color flow and Doppler was performed. The study quality was technically adequate. Comparison is made with the echocardiogram of 12-19-04. The patient was in normal sinus rhythm during the exam. Left Ventricle: The left ventricle is normal in size, wall thickness, and systolic function without any focal wall motion abnormalities. Proximal septal thickening is noted. The ejection fraction is estimated to be 60-65%. Assessment of diastolic parameters indicates a relaxation abnormality of the left ventricle, consistent with normal filling pressures. Right Ventricle: The right ventricle is normal in size and function. There is a pacemaker lead in the right ventricle. Atria: The left atrium is moderately dilated. Right atrial size is normal. There is a catheter/pacemaker lead seen in the right atrium. Mitral Valve: The mitral valve leaflets appear mildly thickened, but open well. There is mild mitral annular calcification. There is no mitral regurgitation noted. Aortic Valve: The aortic valve is trileaflet. Leaflet mobility is mild to moderately reduced. There is moderate aortic valve sclerosis. Minimal aortic stenosis present. No aortic regurgitation is present. Tricuspid Valve: The tricuspid valve leaflets are thin and pliable. There is mild tricuspid regurgitation. The right ventricular systolic pressure is estimated at 31 mmHg assuming a right atrial pressure of 3 mm Hg. Pulmonic Valve: The pulmonic valve is normal in structure and function. There is no pulmonic valvular regurgitation. Great Vessels: The aortic root is normal size. The dimensions of the ascending aorta are normal. The IVC is of normal diameter and collapses greater than 50% with a sniff. This suggests a low right atrial pressure of 3 mm Hg. Pericardium/ Pleura There is no pericardial effusion. There is no pleural effusion. MMode/2D Measurements & Calculations LVIDd LA dimension: 2.2 cm RA long axis: 4.4 cm LVOT diam: 2.1 cm : 3.6 cm AoV Opening LVIDs LA A2 area: 19.1 cm RA area: 14.6 cm : 2.3 cm LA A4 area: 17.7 cm RA vol: 41.1 ml Ao root diam FS: 37.5 % LA length (vol) RA : 33.0 ml/m IVSd RVDd major: 4.5 cm Aortic Jxn: 2.5 cm : 0.8cm LA vol: 46.9 ml asc Aorta Diam LVPWd LA vol index : 0.6cm Ao Arch Diam (Prox Trans): 1.9 cm IVC diam: 1.7 cm TIERNEY (plan) LV millan. diameter/BSA LV sys. diameter/BSA RVD1 (basal) : 1.2 cm2 (cm/m^2): 2.9 (cm/m^2): 1.8 : 2.6 cm RVD2 (mid) : 2.4 cm Doppler Measurements & Calculations Ao V2 max MV E max caleb MV E/A: 0.72 TR max caleb : 182.2 cm/sec : 61.5 cm/sec Med Peak E' Caleb : 262.3 cm/sec Ao max PG MV A max caleb TR max PG : 13.3 mmHg : 85.8 cm/sec E/E' med: 12.4 : 27.5 mmHg Ao mean PG MV P1/2t: 100.5 msec Lat Peak E' Caleb PA V2 max : 44.9 cm/sec LVOT Max Caleb E/E' lat: 12.3 PA mean PG : 77.5 cm/sec E/e' average: 12.4 : 0.40 mmHg TIERNEY(I,D): 1.9 cm MV A dur: 0.15 sec PA Accel Time sev ratio : 0.16 sec MV dec time MV P1/2t max caleb Ao V2 mean LV V1 max PG : 0.34 sec : 126.9 cm/sec MVA(P1/2t): 2.2 cm2 Ao V2 VTI: 47.8 cm LV V1 VTI TIERNEY(V,D): 1.5 cm2 : 25.5 cm PA V2 mean TIERNEY indexed to BSA : 29.1 cm/sec (cm^2/m^2): 1.5 Reading Physician:02:52 PM
--- NOTE | 2017-01-17 15:39 | NUR ---
Social Work: Multidisciplinary Rounds Pt discussed in rounds. MD states pt will complete CVA work-up. OUTSIDE DELIVERER will review therapy recommendations and follow up with pt for initial assessment tomorrow. GEMA Woods
--- NOTE | 2017-01-17 17:47 | PCM.PNMED ---
Subjective Date of Service Jan 17, 2017 Subjective No complaints Exam Vital Signs Vital Sign - Last Date Time Temp Pulse Resp B/P Pulse Ox O2 Delivery O2 Flow Rate FiO2 01/17/17 12:58 37.1 73 18 131/70 96 Room Air Intake and Output 01/16/17 01/16/17 01/17/17 Cumulative From/Thru 15:00 23:00 07:00 01/16/17 14:48 - 01/17/17 06:37 Intake Total 819 ml 819 ml Output Total 300 ml 300 ml Balance 519 ml 519 ml Intake Oral 0 ml 0 ml IV Total 819 ml 819 ml Output Urine Total 300 ml 300 ml # Voids 1 1 # Bowel Movements 0 0 Exam General: Alert and oriented, no acute distress, very talkative, speech seems normal Heart: Occasional irregularity Lungs: Clear Abdomen: Soft, non-tender Extremities: No pedal edema Neuro: Hand plug shaper hand strong and equal IVs and Medications Medications Reviewed: Medications were reviewed in detail Lab and Diagnostics Result Diagram: 01/16/17 1504 01/16/17 1504 Assessment & Plan Expressive aphasia now resolved, TIA versus CVA - Patient symptoms have completely resolved. cannot get MRI due to her pacemaker. - carotid ultrasound finished late in the day, per tech she was not able to cooperate well with exam so limited, she does have plaque in carotids but maximum stenosis may be around 70% - echocardiogram, no apparent source of TIA - patient is fully anticoagulated - Started on a statin - No neurology available on the weekend for consultation Chronic atrial fibrillation on chronic anticoagulation - Continue with rate control she is on metoprolol and is in a paced rhythm. OK to DC tele - Continue Coumadin. Acute kidney injury - [place] to have some volume depletion on admission and given IV fluids at 75 mL per hour. Will DC those now CODE STATUS: DO NOT RESUSCITATE DO NOT INTUBATE Disposition: Discharge in the morning when home health physical therapy can be arranged GI Prophylaxis: Proton Pump Inhibitor VTE Prophylaxis: Amirah Brand MD Jan 17, 2017 17:47
--- NOTE | 2017-01-17 18:20 | DRSVH ---
PROCEDURE: US BILATERAL DUPLEX DOPPLER IMAGING OF THE CAROTIDS ([id number]) INDICATIONS: TIA? TECHNIQUE: Color and pulse Doppler interrogation was performed of both carotid systems, with image documentation and velocity measurements. COMPARISON: None. FINDINGS: Stenosis calculations are based on SRU (Society of Radiologists in Ultrasound) criteria. Right side: Brachial blood pressure: Not obtained Common carotid artery peak systolic velocity: 51.8 cm/sec. Internal carotid artery peak systolic velocity: 44 point cm/sec. Internal carotid artery end diastolic velocity: 12.4 cm/sec. External carotid artery peak systolic velocity: 76.2 cm/sec. ICA/CCA peak systolic ratio: 0.7. Chris scale imaging description: Dense, exophytic atheromatous calcifications are present at the carot id bifurcation extending into the internal carotid artery. Percent internal carotid artery stenosis: Less than 50% stenosis by velocity criteria. Vertebral artery: Not interrogated Left side: Brachial blood pressure: Not obtained Common carotid artery peak systolic velocity: 45.7 cm/sec. Internal carotid artery peak systolic velocity: Not obtained Internal carotid artery end diastolic velocity: Not obtained External carotid artery peak systolic velocity: 76.2 cm/sec. ICA/CCA peak systolic ratio: Not available Chris scale imaging description: Not well characterized. Calcified plaque is present at the carotid bu lb where visualized. Percent internal carotid artery stenosis: Not calculated. Vertebral artery: Not interrogated. IMPRESSION: 1. Markedly limited study due to patient's inability to cooperate with the sonographers instructions. 2. Percent stenosis in the right internal carotid artery is less than 50% by velocity criteria. Howev er, chris scale images demonstrate near occlusion at the level of the carotid bulb. This discrepancy m ay be due to patient's inability to comply with the sonographers instructions during the study. If further characterization is warranted, CTA or MRA of the neck, or repeat ultrasound with better pa tient preparation may be helpful to further characterize findings. Dictated by: Sofy Mccarthy M.D. on 01/17/2017 at 18:09 Approved by: Sofy Mccarthy M.D. on 01/17/2017 at 18:19
--- NOTE | 2017-01-17 18:46 | NUR ---
Gait Patient unwilling to use call light when she needs to use the bathroom. 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 [place] alarm on.
[2017-01-17 20:35] VITALS: BP 150/66; PULSE 56; RESP 16; O2SAT 96
[2017-01-18 06:08] VITALS: BP 149/70; PULSE 79; RESP 16; O2SAT 95
--- NOTE | 2017-01-18 07:13 | PCM.DIMED ---
Discharge Instructions Date of Service Jan 18, 2017 Dates of Hospitalization Jan 16, 2017 at 17:15 Discharge Diagnosis Discharge Diagnosis TIA Diet Discharge Diet: Heart Healthy Activity Discharge Activity: Other (have someone standing by to assist if needed) Call your provider Call your provider for: Other (symptoms recur) Patient Instructions Follow-up with PCP in: 1 week Amirah Azul MD Jan 18, 2017 07:13
[2017-01-18] MEDS ORDERED: ATOR10TA66 PO (07:15)
--- NOTE | 2017-01-18 07:22 | PCM.DC.MED ---
Discharge Summary Date of Service Jan 18, 2017 Dates of Hospitalization Date of Hospital Admission Jan 16, 2017 at 17:15 Date of Discharge: Jan 18, 2017 Providers: Admitting Physician: Pedro Ames MD Primary Care Physician: Vinod Serrato MD Attending Physician: Keri Hinds MD Diagnosis at Time of Discharge Diagnosis at Time of Discharge TIA Procedures XRay, CTs & MRIs Date of Service: 01/16/17 1440 PROCEDURE: CT BRAIN (TPA) ([id number]) INDICATIONS: Stroke TECHNIQUE: Noncontrast 4.5 mm thick angled axial sections acquired from the foramen magnum to the vertex, with coronal reformats. COMPARISON: [facility], CT, CT ABD PELVIS WO CON, 10/13/2015, 12:07. FINDINGS: Image quality: Excellent. CSF spaces: Basal cisterns are patent. No extra-axial fluid collections. Ventricles are normal in size and shape. Brain: No midline shift. No intracranial masses or hemorrhage. Chris-white matter interface is normal. Generalized cerebral and cerebellar atrophy. Periventricular deep white matter chronic benign ischemic change. Skull and face: Calvarium and visualized facial bones are intact, without suspicious lesions. Sinuses: Visualized sinuses and mastoids are clear. IMPRESSION: 1. No CT evidence of acute intracranial pathology. 2. Generalized cerebral and cerebellar atrophy. 3. Findings and recommendations discussed with Dr. Garcia via telephone ([phone]) at 2:55 PM on 01/16/2017. This study fulfills neurological imaging criteria for inclusion or exclusion of acute stroke therapies based on available published neurological imaging guidelines. Dictated by: Vikram Pantoja M.D. on 01/16/2017 at 14:53 Approved by: Vikram Pantoja M.D. on 01/16/2017 at 14:57 Date of Service: 01/17/17 0800 PROCEDURE: US BILATERAL DUPLEX DOPPLER IMAGING OF THE CAROTIDS ([id number]) INDICATIONS: TIA? TECHNIQUE: Color and pulse Doppler interrogation was performed of both carotid systems, with image documentation and velocity measurements. COMPARISON: None. FINDINGS: Stenosis calculations are based on SRU (Society of Radiologists in Ultrasound) criteria. Right side: Brachial blood pressure: Not obtained Common carotid artery peak systolic velocity: 51.8 cm/sec. Internal carotid artery peak systolic velocity: 44 point cm/sec. Internal carotid artery end diastolic velocity: 12.4 cm/sec. External carotid artery peak systolic velocity: 76.2 cm/sec. ICA/CCA peak systolic ratio: 0.7. Chris scale imaging description: Dense, exophytic atheromatous calcifications are present at the carotid bifurcation extending into the internal carotid artery. Percent internal carotid artery stenosis: Less than 50% stenosis by velocity criteria. Vertebral artery: Not interrogated Left side: Brachial blood pressure: Not obtained Common carotid artery peak systolic velocity: 45.7 cm/sec. Internal carotid artery peak systolic velocity: Not obtained Internal carotid artery end diastolic velocity: Not obtained External carotid artery peak systolic velocity: 76.2 cm/sec. ICA/CCA peak systolic ratio: Not available Chris scale imaging description: Not well characterized. Calcified plaque is present at the carotid bulb where visualized. Percent internal carotid artery stenosis: Not calculated. Vertebral artery: Not interrogated. IMPRESSION: 1. Markedly limited study due to patient's inability to cooperate with the sonographers instructions. 2. Percent stenosis in the right internal carotid artery is less than 50% by velocity criteria. However, chris scale images demonstrate near occlusion at the level of the carotid bulb. This discrepancy may be due to patient's inability to comply with the sonographers instructions during the study. If further characterization is warranted, CTA or MRA of the neck, or repeat ultrasound with better patient preparation may be helpful to further characterize findings. Dictated by: Sofy Mccarthy M.D. on 01/17/2017 at 18:09 Approved by: Sofy Mccarthy M.D. on 01/17/2017 at 18:19 Cardiac Echo Impression [address] [id number] Echocardiogram Report Name: JANETT RHODES Study Date: 01/17/2017 Height: 60 in Hospital Exam Location: [facility] Weight: 77 lb Gender: Female BSA: 1.2 m2 : 1925 Age: 89 yrs BP: 148/73 mmHg Reason For Study: TIA Ordering Physician: Performed By: [facility] Interpretation Summary 1) Normal left ventricular thickness, size, wall motion, and systolic function (EF 60-65%). 2) Normal right ventricular size and function. Pacemaker lead visualized in the right ventricle. 3) Minimal aortic stenosis present (mean gradient 7.6mmHg, valve area 1.9cm2, severity ratio 0.53). Consider repeat Echo in 3-5 years for serial monitoring, earlier if clinically indicated. 4) No cardiac cause of TIA identified on today's study. 5) No prior echo available for comparison. Procedure: A two-dimensional transthoracic echocardiogram with color flow and Doppler was performed. The study quality was technically adequate. Comparison is made with the echocardiogram of 12-19-04. The patient was in normal sinus rhythm during the exam. Left Ventricle: The left ventricle is normal in size, wall thickness, and systolic function without any focal wall motion abnormalities. Proximal septal thickening is noted. The ejection fraction is estimated to be 60-65%. Assessment of diastolic parameters indicates a relaxation abnormality of the left ventricle, consistent with normal filling pressures. Right Ventricle: The right ventricle is normal in size and function. There is a pacemaker lead in the right ventricle. Atria: The left atrium is moderately dilated. Right atrial size is normal. There is a catheter/pacemaker lead seen in the right atrium. Mitral Valve: The mitral valve leaflets appear mildly thickened, but open well. There is mild mitral annular calcification. There is no mitral regurgitation noted. Aortic Valve: The aortic valve is trileaflet. Leaflet mobility is mild to moderately reduced. There is moderate aortic valve sclerosis. Minimal aortic stenosis present. No aortic regurgitation is present. Tricuspid Valve: The tricuspid valve leaflets are thin and pliable. There is mild tricuspid regurgitation. The right ventricular systolic pressure is estimated at 31 mmHg assuming a right atrial pressure of 3 mm Hg. Pulmonic Valve: The pulmonic valve is normal in structure and function. There is no pulmonic valvular regurgitation. Great Vessels: The aortic root is normal size. The dimensions of the ascending aorta are normal. The IVC is of normal diameter and collapses greater than 50% with a sniff. This suggests a low right atrial pressure of 3 mm Hg. Pericardium/ Pleura There is no pericardial effusion. There is no pleural effusion. MMode/2D Measurements & Calculations LVIDd LA dimension: 2.2 cm RA long axis: 4.4 cm LVOT diam: 2.1 cm : 3.6 cm AoV Opening LVIDs LA A2 area: 19.1 cm RA area: 14.6 cm : 2.3 cm LA A4 area: 17.7 cm RA vol: 41.1 ml Ao root diam FS: 37.5 % LA length (vol) RA : 33.0 ml/m IVSd RVDd major: 4.5 cm Aortic Jxn: 2.5 cm : 0.8cm LA vol: 46.9 ml asc Aorta Diam LVPWd LA vol index : 0.6cm Ao Arch Diam (Prox Trans): 1.9 cm IVC diam: 1.7 cm TIERNEY (plan) LV millan. diameter/BSA LV sys. diameter/BSA RVD1 (basal) : 1.2 cm2 (cm/m^2): 2.9 (cm/m^2): 1.8 : 2.6 cm RVD2 (mid) : 2.4 cm Doppler Measurements & Calculations Ao V2 max MV E max caleb MV E/A: 0.72 TR max caleb : 182.2 cm/sec : 61.5 cm/sec Med Peak E' Caleb : 262.3 cm/sec Ao max PG MV A max caleb TR max PG : 13.3 mmHg : 85.8 cm/sec E/E' med: 12.4 : 27.5 mmHg Ao mean PG MV P1/2t: 100.5 msec Lat Peak E' Caleb PA V2 max : 44.9 cm/sec LVOT Max Caleb E/E' lat: 12.3 PA mean PG : 77.5 cm/sec E/e' average: 12.4 : 0.40 mmHg TIERNEY(I,D): 1.9 cm MV A dur: 0.15 sec PA Accel Time sev ratio : 0.16 sec MV dec time MV P1/2t max caleb Ao V2 mean LV V1 max PG : 0.34 sec : 126.9 cm/sec MVA(P1/2t): 2.2 cm2 Ao V2 VTI: 47.8 cm LV V1 VTI TIERNEY(V,D): 1.5 cm2 : 25.5 cm PA V2 mean TIERNEY indexed to BSA : 29.1 cm/sec (cm^2/m^2): 1.5 Reading Physician:02:52 PM Brief History Mrs. Rhodes is a 89-year-old female known history of chronic atrial fibrillation on chronic ant- Coagulation status post pacemaker placement who presents to the emergency department with speech disorder disturbance that began about 2-3 hours prior to arrival. Symptoms have been fluctuating. Action now they have completely resolved. Initially she stated the main issue was her being able to get her words out. There is no confusion. Again she knew what she wanted say but just could not express it. There is no weakness in the upper or lower extremities no paresthesias no vision or hearing disturbances. She does have some chronic liver dysfunction there is no new acute issues. No headaches. No facial droop noted her daughter was at bedside no other concerns. Considering her history and previous issues with probable TIA we are asked to further evaluation and management. In emergency department complete workup was done . She did have a CT of the head that was negative. Unfortunately MRI could not be done due to her pacemaker. Hospital Course TIA with Expressive aphasia, now resolved - Patient symptoms have completely resolved. cannot get MRI due to her pacemaker. - carotid ultrasound finished late in the day, per tech she was not able to cooperate well with exam so limited, no lesions identified meeting criteria for surgery and patient would decline it anyway - echocardiogram, no apparent source of TIA - patient is chronically anticoagulated with warfarin which was continued - Started on a statin - No neurology available on the weekend for consultation - seen by PT who recommended home health PT - Seen by speech therapy who felt she was at her baseline and did not need any therapy or change in diet Chronic atrial fibrillation on chronic anticoagulation, hx pacermaker placement - Continue with rate control, she is on metoprolol and was in a paced rhythm - Continue Coumadin. Acute kidney injury vs CKD - [place] to have some volume depletion on admission and given IV fluids at 75 mL per hour. - creatinine was 1.2 on admission and 1.3 at discharge - outpatient follow up CODE STATUS: DO NOT RESUSCITATE DO NOT INTUBATE Exam Vital Signs (Last) Date Time Temp Pulse Resp B/P Pulse Ox O2 Delivery O2 Flow Rate FiO2 01/18/17 06:08 36.8 79 16 149/70 95 Room Air Exam General: Alert and oriented, no acute distress Neuro: normal speech, hand manager credit risk strong and equal Heart: Regular Lungs: Clear Extremities: No pedal edema Test 01/16/17 15:04 01/16/17 15:40 01/16/17 19:50 01/17/17 01:19 White Blood Count 6.1th/mm3 (3.8-10.1) Red Blood Count 3.96mil/mm3 (3.90-5.20) Hemoglobin 12.5g/dL (12.0-15.6) Hematocrit 38.0% (35.0-46.0) Mean Corpuscular Volume 96.0fL (81-100) Mean Corpuscular Hemoglobin 31.6pg (27.0-35.0) Mean Corpuscular Hemoglobin Concent 32.9% (32.0-37.0) Red Cell Distribution Width 14.6% (12.3-15.4) Platelet Count 219bil/L (150-400) Neutrophils (%) (Auto) 52.2% (40-74) Lymphocytes (%) (Auto) 33.4% (14-46) Monocytes (%) (Auto) 11.1% (4-12) Eosinophils (%) (Auto) 2.3% (0-5) Basophils (%) (Auto) 0.8% (0-3) Activated Partial Thromboplast Time 36.7sec (22.8-33.0) Total Bilirubin 0.3mg/dL (0.0-1.2) Aspartate Amino Transf (AST/SGOT) 22U/L (0-50) Alanine Aminotransferase (ALT/SGPT) 10U/L (0-32) Alkaline Phosphatase 91U/L (25-165) Troponin T < 0.010ug/L (0.0-0.011) Total Protein 6.7g/dL (6.4-8.4) Albumin 4.0g/dL (3.4-5.0) Hold Lane Top Tube Received (Received) Hold [place] Top Tube Received (Received) Urine Color Yellow (YELLOW) Urine Appearance Clear (CLEAR,HAZY) Urine pH 6.5 (5.0-8.0) Urine Specific [place] 1.005 (1.003-1.035) Urine Protein Negativemg/dL (NEG,TRACE) Urine Glucose (UA) Negativemg/dL (NEGATIVE) Urine Ketones Negativemg/dL (NEGATIVE) Urine Occult Blood Trace (NEGATIVE) Urine Nitrite Negative (NEGATIVE) Urine Bilirubin Negative (NEGATIVE) Urine Urobilinogen Normalmg/dL (NORMAL) Urine Leukocyte Esterase Negative (NEGATIVE) Urine RBC 0-2/hpf (0-2) Urine WBC 0-5/hpf (0-5) Urine Epithelial Cells Moderate/hpf (NONE-MOD) Urine Crystals None seen (NONE SEEN) Urine Bacteria Few/hpf (NONE-FEW) Urine Hyaline Casts Occasional/lpf (NONE) Urine Granular Casts None seen (NONE SEEN) Urine Waxy Casts None seen (NONE SEEN) Urine Red Blood Cell Casts None seen (NONE SEEN) Urine White Blood Cell Casts None seen (NONE SEEN) Urine Mucus None seen (None Seen) Urine Trichomonas None seen (NONE SEEN) Urine Yeast None (NONE SEEN) Urinalysis Comment None Urine Culture Reflexed Not indicated Test 01/17/17 06:26 01/17/17 13:37 01/17/17 20:30 Triglycerides Level 119mg/dL (0-149) Cholesterol Level 182mg/dL (100-199) LDL Cholesterol, Calculated 118.200mg/dL (0-99) VLDL Cholesterol 23.800mg/dL HDL Cholesterol 40mg/dL (>39) Cholesterol/HDL Ratio 4.55 (0.0-4.4) Prothrombin Time 25.0sec (8.1-12.5) Prothromb Time International Ratio 2.30ratio Sodium Level 140mEq/L (134-144) Potassium Level 4.5mEq/L (3.5-5.2) Chloride Level 104mEq/L (97-108) Carbon Dioxide Level 22mmol/L (18-29) Blood Urea Nitrogen 18mg/dL (8-27) Creatinine 1.32mg/dL (0.57-1.00) Estimat Glomerular Filtration Rate 54mL/min (>59) Glucose Level 146mg/dL (60-99) Calcium Level 9.8mg/dL (8.5-10.1) Discharge Medications Discharge Medications Atorvastatin Calcium (Atorvastatin Calcium) 10 Mg Tablet 20 MG PO HS Prescribed by: KERI HINDS MD Brimonidine Tartrate (Alphagan P) 5 Ml Drops 1 GTT BOTH_EYES QAM (Reported) Metoprolol Tartrate (Metoprolol Tartrate) 25 Mg Tablet 25 MG PO BID (Reported) Warfarin Sodium (Warfarin Sodium) 2 Mg Tablet 3-4 MG PO DAILY (Reported) Alternate 3mg one day, 4mg next day As needed Acetaminophen (Acetaminophen) 325 Mg Tablet 0.5 TAB PO Q4H PRN PRN For Pain ( Reported) Followup Plan Discharge Diet: Heart Healthy Discharge Activity: Other (have someone standing by to assist if needed) Follow-up with PCP in: 1 week Keri Hinds MD Jan 18, 2017 07:22
[2017-01-18] MEDS: Brimonidine 0.2% 5 mL Ophthalmic Solution BOTH_EYES SCH (09:11)
[2017-01-18] MEDS: Pantoprazole 40 mg ER24 Tablet PO SCH (09:11)
--- NOTE | 2017-01-18 09:58 | NUR ---
Social Work: Initial Assessment / D/C / Multidisciplinary Rounds. Data: Pt is an 89 y/o female admitted for CVA. Pt's PCP is Dr Serrato, pt's insurance is Medicare with [employer] supp. EMR reviewed. Readmit score is 2, low. Pt discussed in rounds. PT recommending HH at this time, RATINGS ANALYST acknowledges MD order for HH. RATINGS ANALYST met with pt and daughter at bedside, role explained. Pt states she lives in [place] alone where she uses a cane and a walker. Pt's daughter and other friend are with her during the day 7 days a week. Pt does not drive, have no hx of HH or SNF, no LTC or VA benefits, and is not a caregiver. Pt states she has had [facility] in the past. RATINGS ANALYST explained HH to pt and daughter and that MD and PT are recommending this. Pt declines at this time. RATINGS ANALYST informed her she can ask her PCP to assist with setting this up if she is interested at a later time. No further d/c planning needs identified at this time. Assessment: Pt who is independent at baseline. Plan: Pt will d/c home via POV with daughter today. No further d/c planning needs identified at this time. GEMA Woods Addendum: 01/18/17 at 1002 by ANTWAN JENKINS SS Amended: Links added.
--- NOTE | 2017-01-18 10:39 | NUR ---
DISCHARGE Patient discharged home at 0940, off floor in wheelchair accompanied by SPECIAL EDUCATION PARAPROFESSIONAL and daughter. Vitals stable, neuro assessment normal, and in no apparent distress. All belongings returned, IV discontinued intact. All instructions for diet, activity, medications and new prescriptions reviewed with patient and daughter who report understanding.
== END 2017-01-18 09:40 | disposition home or self-care (01) ==
LOC: SED 14:42 → MPC 17:15
PROVIDERS: ADMIT Internal Medicine Cardiovascular Disease; ATTEND Internal Medicine
DX: G45.9 Transient cerebral ischemic attack, unspecified (principal); F80.1 Expressive language disorder; I48.2 Chronic atrial fibrillation; Z86.73 Personal history of transient ischemic attack (TIA), and cerebral infarction without residual deficits; N17.9 Acute kidney failure, unspecified; I10 Essential (primary) hypertension; J44.9 Chronic obstructive pulmonary disease, unspecified; K21.9 Gastro-esophageal reflux disease without esophagitis; M81.0 Age-related osteoporosis without current pathological fracture; K44.9 Diaphragmatic hernia without obstruction or gangrene; H40.9 Unspecified glaucoma; F17.210 Nicotine dependence, cigarettes, uncomplicated; Z87.440 Personal history of urinary (tract) infections; Z95.0 Presence of cardiac pacemaker; Z79.01 Long term (current) use of anticoagulants; Z66 Do not resuscitate
CPT/HCPCS: 36415; 70450; 80048; 80053; 80061; 81000; 84484; 85025; 85610; 85730; 92610; 93005; 93880; 97161; 99285; C8929; G0378; G8978; G8979; G8980; G8996; G8997; J7030

== ENCOUNTER 2017-02-07 18:54 | Observation (INO) | payer MEDICARE, OTHER ==
[~2017-02-07] VITALS: Ht 152.4 cm; Wt 34.5 kg
[~2017-02-07 18:54] MED LIST changes: +ACET325T51 PO; +ATOR10TA66 PO; -LIPA1CAP PO; -OXYC5TAB72 PO; -PANT40TA3 PO; -POLY17PO6 PO; -WARF2TAB PO; +WARF2TAB7 PO
[2017-02-07 19:04] VITALS: BP 159/57; PULSE 70; RESP 18; O2SAT 96
--- NOTE | 2017-02-07 19:07 | ED.REPORT ---
HPI-Trauma Minor / Fall Date of Service Feb 07, 2017 ED Provider: Jose C Abel DO An 89 year old female on Warfarin with a history of hypertension, osteoporosis, COPD, TIA, pacemaker and multiple compression fractures of T11 and L1 is brought to the ED via EMS due to right hip pain. The pt fell this afternoon on a step in the garage, though she does not recall why she fell. The pt does not remember if she was dizzy at the time or tripped. The pt hit her right hip on the cement floor and hit her head, but denies loss of consciousness or headache. She was able to walk inside to the couch following the fall, but states she cannot walk at this time. She is now complaining of neck pain, right hip pain and groin pain but denies cough or dysuria. The pt lives alone. Nursing Notes Stated Complaint: GROUND LEVEL FALL Chief Complaint: Multiple Trauma/Fall Nursing Notes Reviewed: Yes Allergies: Coded Allergies: Penicillins (Verified Allergy, Severe, pt took once, rash all over body, ) erythromycin ethylsuccinate (Verified Allergy, Severe, 02/07/17) Cephalosporins (Verified Allergy, Unknown, 02/07/17) Sulfa (Sulfonamide Antibiotics) (Verified Allergy, Unknown, 02/07/17) Scheduled Atorvastatin Calcium (Atorvastatin Calcium) 10 Mg Tablet 20 MG PO HS Brimonidine Tartrate (Alphagan P) 5 Ml Drops 1 GTT BOTH_EYES QAM Metoprolol Tartrate (Metoprolol Tartrate) 25 Mg Tablet 25 MG PO BID Warfarin Sodium (Warfarin Sodium) 2 Mg Tablet 3-4 MG PO DAILY Alternate 3mg one day, 4mg next day Scheduled PRN Acetaminophen (Acetaminophen) 325 Mg Tablet 0.5 TAB PO Q4H PRN PRN For Pain Tramadol (Tramadol) 50 Mg Tablet 50 MG PO DAILY PRN PRN For Pain General Time Seen by MD: 19:07 Chief Complaint Other (Right hip pain) Hx Obtained From: Patient, Other family..., EMS Arrived By: Ambulance Onset Occurred: 1 - 4 hours ago Symptom Duration: Since onset Recent Healthcare: No recent hospitalization, Recent doctor visit Similar Sx Previous: No Past Medical History Past Medical History Notes: Shucker: Dr. Saldaña Past Medical History Pacemaker insertion for atrial fibrillation in 2005 (anticoagulated on warfarin) Hiatal hernia Osteoporosis Glaucoma Multiple compression fracture - T11 and L1 Pancreas mass Reports: COPD, GERD, Hypertension, Transient ischemic attack Reports: Urinary tract infection Past Surgical History Bladder suspension Reports: Appendectomy, Cholecystectomy, Hysterectomy Reports: Pacemaker insertion Family History Negative for pancreas cancer Smoking History Current Some Day Smoker Social History Alcohol Use: Denies alcohol use Drug Use: Denies drug use Other Social History: Good social support, Lives alone, Local resident Ambulatory Status Cane Review of Systems Review of Systems Note: groin pain Respiratory: Denies: Non-productive cough, Shortness of breath Musculoskeletal: Reports: Joint pain (right hip), Neck pain Skin: Denies Rash Neurologic: Denies: Change LOC, Headache Complete sys rev & neg: except as marked. Cardiovascular: Denies: Chest pain GI: Denies: Abdominal pain, Vomiting Physical Exam Initial Vital Signs Vital Signs (First) Date Time Temp Pulse Resp B/P Pulse Ox O2 Delivery O2 Flow Rate FiO2 02/07/17 19:04 37.0 70 18 159/57 96 Room Air 02/07/17 22:06 2 Initial VS: Reviewed General/Constitutional: Awake, Alert Neck: Supple, Full range of motion Head / Eyes: Atraumatic, Normocephalic, PERRL, EOMI ENT: Atraumatic, Airway patent, Mucous membranes moist Respiratory / Chest: Atraumatic, Breath sounds NL, Breath sounds = bilat, No respiratory distress Cardiovascular: Heart rate NL, Regular rhythm holosystolic murmur, left lower sternal border Abdomen: Atraumatic, Soft, Non-tender Back: Atraumatic, Full range of motion Upper Extremity / MS: Full range of motion, Neurologic intact, Vascular intact Lower Extremity / Pelvis / MS: Full range of motion, Neurologic intact, Vascular intact tenderness over the greater trochanter on the right side Skin: Color NL, Warm, Dry small skin tear over right third finger over DIP joint on the palmar side small skin tear over the left wrist Neurologic: Oriented X3, Speech NL, No motor deficits, No sensory deficits Psychiatric: Affect NL, Mood NL Interpretation & Diagnostics Interpretation & Diagnostics: CT Pelvis: CONCLUSION: There is slight cortical irregularity of the right inferior pubic ramus but I am more inclined to believe that this is an old/subacute fracture given its appearance. The bones appear osteoporotic. Hip/Pelvis X-Ray:IMPRESSION: No definite fractures. Suboptimal exam secondary to diffuse osteopenia Dictated by: Severiano Maharaj M.D. on 02/07/2017 at 20:48 Approved by: Severiano Maharaj M.D. on 02/07/2017 at 20:49 Lab Results Interpretation Result Diagram: 02/09/17 0510 02/09/17 0510 Test 02/07/17 20:45 Neutrophils (%) (Auto) 66.0% (40-74) Lymphocytes (%) (Auto) 25.0% (14-46) Monocytes (%) (Auto) 7.3% (4-12) Eosinophils (%) (Auto) 1.0% (0-5) Basophils (%) (Auto) 0.4% (0-3) Activated Partial Thromboplast Time 33.2sec (22.8-33.0) Magnesium Level 2.0mg/dL (1.6-2.6) Total Bilirubin 0.2mg/dL (0.0-1.2) Aspartate Amino Transf (AST/SGOT) 23U/L (0-50) Alanine Aminotransferase (ALT/SGPT) 16U/L (0-32) Alkaline Phosphatase 95U/L (25-165) Troponin T 0.010ug/L (0.0-0.011) Total Protein 7.0g/dL (6.4-8.4) Albumin 3.9g/dL (3.4-5.0) Hold Lane Top Tube Received (Received) ECG Interpretation ECG Interpretation: atrial-paced complexes with a rate of [address] changes appreciated when compared with EKG from 01/16/2017, heart rate increase is new Time: 20:45 Interpreted by: ED physician X-Ray Chest Interpretation Chest Xray Interpretation: IMPRESSION: No acute disease. Diffuse scarring as before by: Severiano Maharaj M.D. on 02/07/2017 at 20:49 Approved by: Severiano Maharaj M.D. on 02/07/2017 at 20:51 Interpretation / Wet Read by: Interpret - Radiologist CT Head Interpretation IMPRESSION: No acute intracranial process. Dictated by: Severiano Maharaj M.D. on 02/07/2017 at 21:14 Approved by: Severiano Maharaj M.D. on 02/07/2017 at 21:16 Interpretation / Wet Read by: Interpret - Radiologist CT C-Spine Interpretation IMPRESSION: Mild anterior wedging of the T6 vertebral body which is technically indeterminate (new since 10/10/15 ). Please correlate clinically. Dictated by: Severiano Maharaj M.D. on 02/07/2017 at 20:51 Approved by: Severiano Maharaj M.D. on 02/07/2017 at 20:57 Interpretation / Wet Read by: Interpret - Radiologist Re-Eval/Medical Decision Med Decision/Clinical Course Pt unable to ambulate with road test so CT of the pelvis was ordered and returned showing pubic ramus fracture. Pt admitted with ortho consult placed for the morning. No evidence of intracranial bleed on head CT. Neck CT show compression fracture of C6 of undetermined acuity. Fall sounds to be mechanical in nature rather than precipitated by other cause. Source of Hx: Old records Re-Evaluation/Progress : Time of Eval: 23:33 Patient Status: Condition improved Re-Evaluation/Progress Note: Pt rechecked, who is resting comfortably. Radiology results, diagnosis and plan for admission are discussed. The pt understands and agrees with the plan. All questions are addressed at this time. Consultation : Referral / Consult Name: Igor Cifuentes MD Consulted With: Hospitalist Call Returned at: 23:45 Motor Brakeman: Agrees with eval, Agrees with plan, Accepts admit Note: Spoke with Dr. Cifuentes, hospitalist, regarding pt's case. Dr. Cifuentes agrees with the evaluation and agrees to admit the pt. Counseled Regarding: Diagnosis, Lab results, Need for admission Discharge & Departure Impression: Primary Impression: Pubic ramus fracture Encounter type: initial encounter Fracture type: closed Laterality: right Qualified Code: S32.591A - Other specified fracture of right pubis, initial encounter for closed fracture Additional Impressions: Compression fracture of cervical spine Encounter type: initial encounter Qualified Code: M48.52XA - Collapsed vertebra, not elsewhere classified, cervical region, initial encounter for fracture Nausea & vomiting Vomiting type: unspecified Vomiting Intractability: non-intractable Qualified Code: R11.2 - Nausea with vomiting, unspecified Hip pain Laterality: right Qualified Code: M25.551 - Pain in right hip Skin tear Fall from ground level Disposition: ADMITTED TO HOSPITAL Discharge Condition All VS Reviewed: Yes Condition: Stable Referrals: Vinod Serrato MD (PCP) Scribe Attestation Portions of this note were transcribed by Stone Nelson. I, Dr. Abel personally performed the history, physical exam and medical decision-making; I reviewed and confirmed the accuracy of the information in the transcribed note. copies to: Vinod Serrato MD, Gary R DO Feb 07, 2017 19:07 STONE NELSON Feb 07, 2017 19:57 Dictated by: Severiano Maharaj M.D. on 02/07/2017 at 21:14 Approved by: Severiano Maharaj M.D. on 02/07/2017 at 21:16 Interpretation / Wet Read by: Interpret - Radiologist CT C-Spine Interpretation IMPRESSION: Mild anterior wedging of the T6 vertebral body which is technically indeterminate (new since 10/10/15 ). Please correlate clinically. Dictated by: Severiano Maharaj M.D. on 02/07/2017 at 20:51 Approved by: Severiano Maharaj M.D. on 02/07/2017 at 20:57 Interpretation / Wet Read by: Interpret - Radiologist Re-Eval/Medical Decision Source of Hx: Old records Re-Evaluation/Progress : Time of Eval: 23:33 Patient Status: Condition improved Re-Evaluation/Progress Note: Pt rechecked, who is resting comfortably. Radiology results, diagnosis and plan for admission are discussed. The pt understands and agrees with the plan. All questions are addressed at this time. Consultation : Referral / Consult Name: Igor Cifuentes MD Consulted With: Hospitalist Call Returned at: 23:45 Motor Brakeman: Agrees with eval, Agrees with plan, Accepts admit Note: Spoke with Dr. Cifuentes, hospitalist, regarding pt's case. Dr. Cifuentes agrees with the evaluation and agrees to admit the pt. Counseled Regarding: Diagnosis, Lab results, Need for admission Discharge & Departure Impression: Primary Impression: Pubic ramus fracture Encounter type: initial encounter Fracture type: closed Laterality: right Qualified Code: S32.591A - Other specified fracture of right pubis, initial encounter for closed fracture Additional Impressions: Compression fracture of cervical spine Encounter type: initial encounter Qualified Code: M48.52XA - Collapsed vertebra, not elsewhere classified, cervical region, initial encounter for fracture Nausea & vomiting Vomiting type: unspecified Vomiting Intractability: non-intractable Qualified Code: R11.2 - Nausea with vomiting, unspecified Hip pain Laterality: right Qualified Code: M25.551 - Pain in right hip Disposition: ADMITTED TO HOSPITAL Discharge Condition All VS Reviewed: Yes Condition: Stable Referrals: Vinod Serrato MD (PCP) Scribe Attestation Portions of this note were transcribed by Stone Nelson. I, Dr. Abel personally performed the history, physical exam and medical decision-making; I reviewed and confirmed the accuracy of the information in the transcribed note. copies to: Vinod Serrato MD, Gary R DO Feb 07, 2017 19:07 STONE NELSON Feb 07, 2017 19:57
[2017-02-07] MEDS ORDERED: HYDROmorphone 0.5 mg/0.5 mL iSecure Syringe IVPUSH ONE ×2 (20:35→22:35)
--- NOTE | 2017-02-07 20:50 | DRSVH ---
PROCEDURE: X-RAY PELVIS W/LAT HIP (RT) ([id number]) INDICATIONS: fall, r hip pain, osteoporosis TECHNIQUE: AP pelvis with lateral view(s) of the right hip(s). COMPARISON: None. FINDINGS: Bones: Suboptimal evaluation due to diffuse osteopenia. Lumbar disc degeneration. No fractures or di slocations. Pelvic ring appears intact. No suspicious bony lesions. Soft tissues: The visualized bowel gas pattern is normal. No suspicious soft tissue calcifications. IMPRESSION: No definite fractures. Suboptimal exam secondary to diffuse osteopenia Dictated by: Severiano Maharaj M.D. on 02/07/2017 at 20:48 Approved by: Severiano Maharaj M.D. on 02/07/2017 at 20:49
--- NOTE | 2017-02-07 20:53 | DRSVH ---
PROCEDURE: X-RAY CHEST ONE VIEW, PORTABLE ([id number]) INDICATIONS: fall TECHNIQUE: One view of the chest was acquired. COMPARISON: [facility], CR, XR CHEST 1VW (PORTABLE), 12/09/2016, 14:42. FINDINGS: Surgical changes and devices: None. Lungs and pleura: No pleural effusions or pneumothorax. Linear scarring/atelectasis projecting in th e left midlung. There is diffuse background scarring. No focal consolidation. Mediastinum: Mediastinal contours appear normal. Heart size is normal. Bones and chest wall: No suspicious bony lesions. Overlying soft tissues appear unremarkable. Late ral curvature of the spine. IMPRESSION: No acute disease. Diffuse scarring as before by: Severiano Maharaj M.D. on 02/07/2017 at 20:49 Approved by: Severiano Maharaj M.D. on 02/07/2017 at 20:51
--- NOTE | 2017-02-07 20:59 | DRSVH ---
PROCEDURE: CT CERVICAL SPINE WITHOUT CONTRAST ([id number]) INDICATIONS: fall, hit head, on coumadin TECHNIQUE: Noncontrast 3 mm thick sections acquired from the skull base to the T4 level. Sagittal and coronal r eformats were then constructed. For radiation dose reduction, the following was used: automated exp osure control, adjustment of mA and/or kV according to patient size. COMPARISON: [facility], CT, CT THORACIC SPINE WO CON, 10/10/2015, 18:33. [facility], CR, XR THORACIC SPINE 3VW, 11/09/2016, 20:11. FINDINGS: Image quality: Excellent. Bones: There is diffuse osteopenia. Mid-lower cervical disc degeneration. Endplate spurring and scle rosis most pronounced at C6-C7. Mild anterior wedging of the T6 vertebral body, which is new since however no other relevant comparisons. Elsewhere, no definite fractures or dislocations. Visua lized superior ribs are intact. Soft tissues: Prevertebral soft tissues are normal in thickness. No paravertebral hematomas. No ap ical pneumothoraces. IMPRESSION: Mild anterior wedging of the T6 vertebral body which is technically indeterminate (new since 10/10/15 ). Please correlate clinically. Dictated by: Severiano Maharaj M.D. on 02/07/2017 at 20:51 Approved by: Severiano Maharaj M.D. on 02/07/2017 at 20:57
[2017-02-07 21:13] LABS: BASOPHILS % (AUTO) 0.4 % (0-3); MONOCYTES % (AUTO) 7.3 % (4-12); Mean Corpuscular Hemoglobin 31.5 pg (27.0-35.0); Platelet Count 206 bil/L (150-400)
--- NOTE | 2017-02-07 21:18 | DRSVH ---
PROCEDURE: CT BRAIN WITHOUT CONTRAST ([id number]) INDICATIONS: fall, hit head, on coumadin TECHNIQUE: Noncontrast 4.5 mm thick angled axial sections acquired from the foramen magnum to the vertex, with c oronal reformats. COMPARISON: None. FINDINGS: Image quality: Excellent. CSF spaces: Basal cisterns are patent. No extra-axial fluid collections. The ventricles are symmet daija in size and shape. Brain: No intracranial bleeds or masses. There is cerebral volume loss for age, with resultant vent ricular and sulcal prominence. There are periventricular and deep white matter chronic small vessel ischemic changes. There is intracranial internal carotid artery atherosclerosis. Skull and face: Calvarium and visualized facial bones appear intact, without suspicious lesions. Sinuses: Visualized sinuses and mastoids are clear. IMPRESSION: No acute intracranial process. Dictated by: Severiano Maharaj M.D. on 02/07/2017 at 21:14 Approved by: Severiano Maharaj M.D. on 02/07/2017 at 21:16
[2017-02-07 21:22] LABS: INR 1.95 ratio
[2017-02-07 21:24] LABS: TROPONIN T 0.01 ug/L (0.0-0.011)
[2017-02-07] MEDS ORDERED: Ondansetron 2 mg/mL 2 mL Inj ONE (21:58)
[2017-02-07 22:05] VITALS: BP 150/55; PULSE 78; RESP 18; O2SAT 88
[2017-02-07 22:06] VITALS: RESP 20; O2SAT 98
[2017-02-07] MEDS ORDERED: Ondansetron 2 mg/mL 2 mL Inj IVPUSH ONE (22:35)
[2017-02-08] VITALS (8 sets, daily range): BP systolic 120–167; BP diastolic 58–72; PULSE 58–93; RESP 16–22; O2SAT 90–99
[2017-02-08] MEDS ORDERED: Alum-Mag Hydrox-Simeth 30 mL Suspension PO PRN (01:10)
[2017-02-08] MEDS ORDERED: Ondansetron 2 mg/mL 2 mL Inj IVPUSH PRN (01:10)
[2017-02-08] MEDS ORDERED: Polyethylene Glycol (PEG) 17 Gm Powder PO PRN (01:10)
--- NOTE | 2017-02-08 02:37 | NUR ---
ADMIT; 89 yr old female admitted to room 1022 via gurney with c/o right side pelvic and neck pain from a ground level fall at 0130. See admit screens.
--- NOTE | 2017-02-08 04:46 | PCM.HPMED ---
Subjective Date of Service Feb 08, 2017 Primary Provider: Admitting Physician: Igor Cifuentes MD Primary Care Physician: Vinod Serrato MD Attending Physician: Igor Cifuentes MD Admit Status: From the Emergency Department Chief Complaint: Right hip pain following a Ground Level Fall History of Present Illness: Jennifer Rhodes is an 89-year-old female patient with past medical history significant for A. fib on warfarin, hypertension, osteoporosis, COPD, TIA, permanent pacemaker, multiple compression fractures of T11 and L1 presented to the ED via EMS because of right hip pain following a ground-level fall. Patient states that she fell on a step in her garage and hit her right hip on the cement floor. She states that she could have possibly hit her head also but that it is very vague and she is unsure. She denies loss of consciousness. She is complaining of right hip pain and groin pain as well as some mild neck pain. She states that it feels like a whiplash. The pain does not radiate anywhere else in her body. She reports to have sensation over her right hip and denies numbness and tingling. She denies fevers, chills, headaches, visual changes, chest pain, shortness of breath, abdominal pain, dysuria, and bowel changes. She notes nausea and vomiting. She lives in [place] by herself and often has family members visiting her. She is independent and uses a cane or a walker at home. In the ED, her vital signs are as follows temperature 37C, pulse 70, respiratory rate 18, blood pressure 159/57, 96% O2 sat on room air. CT of the pelvis showed slight cortical irregularity of the right inferior pubic ramus, CXR showed no acute disease, CT of the head showed no acute intracranial process , CT of spine showed mild anterior wedging of the T6 per every 4 body which is technically indeterminate. She was given IV Dilaudid for pain control. Review of Systems: A comprehensive review of systems was conducted with the patient and found to be negative except as above in the history of present illness. Allergies Coded Allergies: Penicillins (Verified Allergy, Severe, pt took once, rash all over body, ) erythromycin ethylsuccinate (Verified Allergy, Severe, 02/07/17) Cephalosporins (Verified Allergy, Unknown, 02/07/17) Sulfa (Sulfonamide Antibiotics) (Verified Allergy, Unknown, 02/07/17) Home Medications Atorvastatin 20 mg by mouth at bedtime, metoprolol tartrate 25 mg by mouth twice a day, warfarin 3-4 mg by mouth daily, brimonidine tartrate for her eyes every morning PMH Atrial fibrillation on warfarin, hypertension, osteoporosis, COPD, TIA, pacemaker placement, multiple compression fractures of T11 and L1 Surgical History Bladder suspension, Appendectomy, Cholecystectomy, Hysterectomy, Pacemaker insertion Family History Mother with type II diabetes, and other family members with coronary artery disease. Social History Hx Alcohol Use: No Hx Substance Use: No Hx Tobacco Use: Yes (smokes 2-3 cigarettes a day ) Smoking Status: Current Some Day Smoker Living Arrangement: Alone Exam Vital Signs Vital Sign - Last Date Time Temp Pulse Resp B/P Pulse Ox O2 Delivery O2 Flow Rate FiO2 02/08/17 01:50 36.9 69 18 167/70 98 Nasal Cannula 2.00 Exam General: Patient is lying on bed, Not in acute distress, Alert, Awake and Oriented to person and place but not time, Patient is cachetic HEENT: head normocephalic and atraumatic, PERRLA, EOMI, no scleral icterus, mucous membranes dry Neck: neck supple, non-tender, no lymphadenopathy, trachea midline CV: regular rate and rhythm, s1 and s2 heard, radial pulses equal bilaterally, 2 /6 holosystolic murmur on left lower sternal border Lungs: Clear to auscultation bilaterally, no wheezes, rales or rhonchi, no increased work of breathing, on 2 L of Oxygen NC Abdomen: normoactive bowel sounds on 4Q, soft, non-tender to palpation, no organomegally Skin: warm and dry, echymosis noted, small skin laceration on 3rd digit of left hand Musculoskeletal: Upper Extremity- equal strength bilaterally Lower Extremity: range of motion not tested on Right leg because patient was complaining of pain and tenderness over the greater trochanter on right side, vascular intact bilaterally Neuro: Grossly neurologically intact, normal speech, sensation intact, not oriented to time Psych: Pleasant and cooperative female Lab and Diagnostics Labs Laboratory Tests Test 02/07/17 20:45 White Blood Count 8.0th/mm3 (3.8-10.1) Red Blood Count 3.72mil/mm3 (3.90-5.20) Hemoglobin 11.7g/dL (12.0-15.6) Hematocrit 35.7% (35.0-46.0) Mean Corpuscular Volume 96.0fL (81-100) Mean Corpuscular Hemoglobin 31.5pg (27.0-35.0) Mean Corpuscular Hemoglobin Concent 32.8% (32.0-37.0) Red Cell Distribution Width 14.9% (12.3-15.4) Platelet Count 206bil/L (150-400) Neutrophils (%) (Auto) 66.0% (40-74) Lymphocytes (%) (Auto) 25.0% (14-46) Monocytes (%) (Auto) 7.3% (4-12) Eosinophils (%) (Auto) 1.0% (0-5) Basophils (%) (Auto) 0.4% (0-3) Prothrombin Time 21.1sec (8.1-12.5) Prothromb Time International Ratio 1.95ratio Activated Partial Thromboplast Time 33.2sec (22.8-33.0) Sodium Level 141mEq/L (134-144) Potassium Level 4.4mEq/L (3.5-5.2) Chloride Level 106mEq/L (97-108) Carbon Dioxide Level 22mmol/L (18-29) Blood Urea Nitrogen 31mg/dL (8-27) Creatinine 1.12mg/dL (0.57-1.00) Estimat Glomerular Filtration Rate 66mL/min (>59) Glucose Level 101mg/dL (60-99) Calcium Level 10.0mg/dL (8.5-10.1) Magnesium Level 2.0mg/dL (1.6-2.6) Total Bilirubin 0.2mg/dL (0.0-1.2) Aspartate Amino Transf (AST/SGOT) 23U/L (0-50) Alanine Aminotransferase (ALT/SGPT) 16U/L (0-32) Alkaline Phosphatase 95U/L (25-165) Troponin T 0.010ug/L (0.0-0.011) Total Protein 7.0g/dL (6.4-8.4) Albumin 3.9g/dL (3.4-5.0) Hold Lane Top Tube Received (Received) Result Diagram: 02/07/17204402/07/172044 X-Rays, CTs and MRIs X-Ray Chest Interpretation Chest Xray Interpretation: IMPRESSION: No acute disease. Diffuse scarring as before CT Pelvis: CONCLUSION: There is slight cortical irregularity of the right inferior pubic ramus but I am more inclined to believe that this is an old/subacute fracture given its appearance. The bones appear osteoporotic. Hip/Pelvis X-Ray:IMPRESSION: No definite fractures. Suboptimal exam secondary to diffuse osteopenia Dictated by: Severiano Maharaj M.D. on 02/07/2017 at 20:48 Approved by: Severiano Maharaj M.D. on 02/07/2017 at 20:49 CT Head Interpretation IMPRESSION: No acute intracranial process. Dictated by: Severiano Maharaj M.D. on 02/07/2017 at 21:14 Approved by: Severiano Maharaj M.D. on 02/07/2017 at 21:16 Interpretation / Wet Read by: Interpret - Radiologist CT C-Spine Interpretation IMPRESSION: Mild anterior wedging of the T6 vertebral body which is technically indeterminate (new since 10/10/15 ). Please correlate clinically. Dictated by: Severiano Maharaj M.D. on 02/07/2017 at 20:51 Approved by: Severiano Maharaj M.D. on 02/07/2017 at 20:57 Interpretation / Wet Read by: Interpret - Radiologist 12-lead ECG ECG Interpretation: atrial-paced complexes with a rate of [address] changes appreciated when compared with EKG from 01/16/2017, heart rate increase is new Time: 20:45 Interpreted by: ED physician Assessment & Plan Jennifer Rhodes is an 89-year-old female patient with past medical history significant for A. fib on warfarin, hypertension, osteoporosis, COPD, TIA, permanent pacemaker, multiple compression fractures of T11 and L1 presented to the ED via EMS because of right hip pain following a ground-level fall. She is being admitted to observation for a right pubic ramus fracture, acute versus subacute. 1. Right inferior pubic ramus fracture, acute VS subacute, present on admission Likely secondary to the fall she experienced -CT of the pelvis showed is slight cortical irregularity of the right inferior pubic ramus -We will manage her symptoms with oxycodone as needed for pain -Per RN, ER doctor already left a message with ortho team so that they can see her in the morning -Watch for any signs of bleeding -Physical therapy ordered -Consult bilingual social worker to discuss living situation 2. Acute kidney injury, present on admission -Likely prerenal due to dehydration -Start IV fluids 3. Hypertension, present on admission -Continue home dose of metoprolol tartrate 25 mg by mouth twice a day -Ordered cardiac diet 4. History of Atrial fibrillation on warfarin -Patient is rate controlled with metoprolol -Continue warfarin per pharmacy dosing 5. History of Hyperlipidemia -Continue home dose of atorvastatin CODE STATUS: DO NOT RESUSCITATE, DO NOT INTUBATE DVT prophylaxis: SCDs Bowel regimen when necessary Patient status: Patient is admitted under observation status with expected length of stay less than 2 midnights due to severity of presenting symptoms, risk of adverse event, complexity of treatment plan. Pain Evaluation: Adequate Pain Control VTE Mechanical Devices: Intermittant Pneumatic CD Resuscitation Status: DNR/DNI:Do Not Resuscitate/Intubate Attending Statement The patient was seen and examined together with Dr. Payne on 02/07 and I agree with the history, exam and plan as outlined in the note above. Saundra Payne DO Feb 08, 2017 04:46 Igor Cifuentes MD Feb 08, 2017 05:57
--- NOTE | 2017-02-08 06:22 | DRSVH ---
PROCEDURE: CT PELVIS WITHOUT CONTRAST ([id number]) INDICATIONS: 89 year-old female with right hip pain after ground level fall. TECHNIQUE: Noncontrast 3 mm axial sections acquired through the bony pelvis, with coronal and sagittal reformatt ing. COMPARISON: [facility], CT, CT ABD PELVIS WO CON, 10/13/2015, 12:07. [facility], CT, CT ABD PELVIS WO CON, 07/18/2015, 20:56. [facility], CT, ABD/PELVIS W/O CON (PN L), 11/19/2011, 14:09. [facility], CT, ABD/PELVIS W/O CON (PNL), 03/06/2011, 10:46. [facility], CT, PELVIS W/O CONTRAST, 12/13/2008, 15:14. FINDINGS: Preliminary interpretation rendered by [facility]. Image quality: Excellent. Bones: On axial images 62 and 63, there is localized cortical irregularity involving the right ischia l ramus, new since October 2015. No suspicious lytic or blastic bony lesions. Bilateral L5 pars defects are again noted, with grade 1 L5-S1 spondylolisthesis. Grade I L4-L5 spondylolisthesis from facet gabriel int degeneration is also unchanged. On sagittal images, S1-S2 anterior cortical angulation is unchang ed since October 2015, consistent with nonacute fracture. Soft tissues: Bladder wall thickness is normal. No free pelvic fluid. Visualized small and large robby l loops appear normal in caliber. 4.9 x 4.1 cm right adnexal cystic lesion is not significantly mcelroy ed since December 2008. No inguinal hernias or adenopathy. There is significant aortoiliac atherosclerosi s. Patient is status post cholecystectomy. The uterus is surgically absent. IMPRESSION: 1. Age indeterminate right ischial ramus fracture appears new since October 2015. 2. Nonacute S1-S2 anterior sacral fracture is unchanged since 2015. 3. Bilateral L5 pars defects, with associated L5-S1 grade 1 spondylolisthesis. 4. 4.9 x 4.1 cm right adnexal cystic lesion is not significantly changed since December 2008, more reassu ring for benign cystic ovarian neoplasm in a postmenopausal female. Dictated by: Steve Multani M.D. on 02/08/2017 at 6:09 Approved by: Steve Multani M.D. on 02/08/2017 at 6:20
[2017-02-08 07:03] LABS: Mean Corpuscular Hemoglobin 31.2 pg (27.0-35.0)
--- NOTE | 2017-02-08 07:18 | NUR ---
PAIN; no request for pain rx. Pt slept well during the night. IV; infiltrated, removed. Day shift rn aware.
[2017-02-08 07:25] LABS: INR 1.84 ratio
--- NOTE | 2017-02-08 11:22 | CONS ---
[address] [address] CONSULTATION REPORT PATIENT: JANETT MOONEY : 1925 MR#: [id number] ADMIT: 02/08/2017 JOB ID: [id number] DATE OF SERVICE: 02/08/2017 CHIEF COMPLAINT: Right hip pain. HISTORY OF PRESENT ILLNESS: The patient is an 89-year-old female who lives at home alone, but has assistance from family members. Normally uses a walker or cane who tripped coming into the garage injuring her right hip. She has had pain primarily over her medial thigh in the hamstring region. She has been able to ambulate with a walker, but it is painful to do so. She does not have pain at rest. PAST MEDICAL HISTORY: Significant for TIA, arrhythmia, supraventricular tachycardia, compression fractures. PAST SURGICAL HISTORY: Pacemaker, bladder suspension. REVIEW OF SYSTEMS: Positive for groin pain, hip pain. She denies chest pain or shortness of breath. Skin denies rash or bruising. Neurologic: Denies loss of consciousness or headache. She did report some numbness in the legs, but this has resolved today. Cardiovascular denies chest pain. GI denies nausea, vomiting, or abdominal pain. PHYSICAL EXAMINATION: Blood pressure 126/64, pulse rate 69, respirations 16, temperature 36.9, pulse ox 90 on room air. She is alert and cooperative in no acute distress. Her right hip has no significant pain with internal-external rotation. She is able to straight leg raise. She does have some tenderness over the medial thigh and into the ischium consistent with the hamstring injury. She has no bruising present. Her skin is intact. Her feet are warm, pink, and well perfused. Her arms do have some bruising present from her Coumadin usage. X-rays demonstrate a right ischium fracture avulsion. ASSESSMENT: Right ischium avulsion fracture/hamstring injury. PLAN: Recommend that she use a walker for ambulation for the next month. Recommend holding her Coumadin for two days to prevent hematoma formation and follow up in the clinic in two weeks for recheck with x-rays.
--- NOTE | 2017-02-08 13:29 | NUR ---
TONY explained and signed. Copy of TONY and Medicare self administered medication information given to pt.
--- NOTE | 2017-02-08 14:25 | NUR ---
Evaluation completed. Please go to "Notes" then click on "Assessments and Notes" (bottom left corner of screen). Then select appropriate discipline tab on top of screen.
--- NOTE | 2017-02-08 15:59 | PCM.PNMED ---
Subjective Date of Service Feb 08, 2017 Subjective Patient is seen and examined. She has 2L of oxygen on, says she just smokes 2- 3 puffs of cigarettes a day but does not actually complete the cigarrettes. She is endorsing pain in the medial rate high. Denies dyspnea Exam Vital Signs Vital Sign - Last Date Time Temp Pulse Resp B/P Pulse Ox O2 Delivery O2 Flow Rate FiO2 02/08/17 12:56 36.6 67 16 120/58 94 Room Air 02/08/17 06:30 2.00 Exam Gen.: Sitting up in chair mildly dyspneic, pleasant HEENT: Normocephalic, atraumatic Heart: Systolic murmur, regular rate and rhythm Lungs: Diminished lung sounds in the upper lobes crackles and wheezes Abdomen: Flat and nondistended normal bowel sounds complaints of her bili being to large sized Extremities: Negative edema, Neck R JVD is present Neuro no focal deficits Psych: Negative for anxiety and agitation IVs and Medications Medications Reviewed: Medications were reviewed in detail Lab and Diagnostics Result Diagram: 02/08/[id number]/07/[id number] X-Rays, CTs and MRIs X-Ray Chest Interpretation Chest Xray Interpretation: IMPRESSION: No acute disease. Diffuse scarring as before CT Pelvis: CONCLUSION: There is slight cortical irregularity of the right inferior pubic ramus but I am more inclined to believe that this is an old/subacute fracture given its appearance. The bones appear osteoporotic. Hip/Pelvis X-Ray:IMPRESSION: No definite fractures. Suboptimal exam secondary to diffuse osteopenia Dictated by: Severiano Maharaj M.D. on 02/07/2017 at 20:48 Approved by: Severiano Maharaj M.D. on 02/07/2017 at 20:49 CT Head Interpretation IMPRESSION: No acute intracranial process. Dictated by: Severiano Maharaj M.D. on 02/07/2017 at 21:14 Approved by: Severiano Maharja M.D. on 02/07/2017 at 21:16 Interpretation / Wet Read by: Interpret - Radiologist CT C-Spine Interpretation IMPRESSION: Mild anterior wedging of the T6 vertebral body which is technically indeterminate (new since 10/10/15 ). Please correlate clinically. Dictated by: Severiano Maharaj M.D. on 02/07/2017 at 20:51 Approved by: Severiano Maharaj M.D. on 02/07/2017 at 20:57 Interpretation / Wet Read by: Interpret - Radiologist 12-lead ECG ECG Interpretation: atrial-paced complexes with a rate of [address] changes appreciated when compared with EKG from 01/16/2017, heart rate increase is new Time: 20:45 Interpreted by: ED physician Assessment & Plan Jennifer Rhodes is an 89-year-old female patient with past medical history significant for A. fib on warfarin, hypertension, osteoporosis, COPD, TIA, permanent pacemaker, multiple compression fractures of T11 and L1 presented to the ED via EMS because of right hip pain following a ground-level fall. She is being admitted to observation for a right pubic ramus fracture, acute versus subacute. 1. Right inferior pubic ramus fracture, acute VS subacute, present on admission Likely secondary to the fall she experienced -CT of the pelvis showed is slight cortical irregularity of the right inferior pubic ramus -We will manage her symptoms with oxycodone as needed for pain -dr. trent is seeing the patient, recommend stopping Coumadin for just 2 days due to evulsion of hamstring muscle, she can be discharged from that after PT/ OT for 6 weeks, recommends walker for walking -Watch for any signs of bleeding -Physical therapy ordered . They Recommended discharged to SNF for PTOT -Consult elementary school social worker to discuss living situation 2. Acute kidney injury, present on admission -Likely prerenal due to dehydration -Cont IV fluids 3. Hypertension, present on admission -Continue home dose of metoprolol tartrate 25 mg by mouth twice a day -Ordered cardiac diet 4. History of Atrial fibrillation on warfarin -Patient is rate controlled with metoprolol -Discontinued Coumadin for [address] Murillo's request 5. History of Hyperlipidemia -Continue home dose of atorvastatin CODE STATUS: DO NOT RESUSCITATE, DO NOT INTUBATE DVT prophylaxis: SCDs Bowel regimen when necessary Patient status: Patient is admitted under observation status with expected length of stay less than 2 midnights due to severity of presenting symptoms, risk of adverse event, complexity of treatment plan. Pain Evaluation: Adequate Pain Control VTE Mechanical Devices: Intermittant Pneumatic CD Resuscitation Status: DNR/DNI:Do Not Resuscitate/Intubate Time spent 25 min Rosalinda Leone DO Feb 08, 2017 15:01 Rosalinda Leone DO Feb 08, 2017 15:01
--- NOTE | 2017-02-08 18:14 | NUR ---
Ambulation Patient ambulated with PT today and per PT patient did very well with minimal pain. Tylenol was given before PT. came and worked on patient. At this time patient is in her recliner with no apparent distress at this time.
[2017-02-08 23:39] LABS: APPEARANCE,URINE CLEAR (CLEAR,HAZY); COLOR,URINE YELLOW (YELLOW); OCCULT BLOOD,URINE TRACE (NEGATIVE); UROBILINOGEN,URINE NORMAL (NORMAL)
--- NOTE | 2017-02-09 04:35 | NUR ---
ACTIVITY; up to bsc per walker and one assist. Ua sent to the lab. Slept well tonight. Cooperative.
[2017-02-09 04:52] VITALS: BP 137/59; PULSE 64; RESP 16; O2SAT 95
[2017-02-09 05:59] LABS: INR 1.68 ratio
--- NOTE | 2017-02-09 09:22 | NUR ---
Social Work: Initial Assessment/Readiness for Discharge/Multi-Disciplinary Rounds D: EMR reviewed. Please see Initial Assessment linked to this note for more information. Pt is an 89 y/o female admitted [place] for public ramus fx per H&P. Pt has a readmit risk score of 4. SW met with pt at bedside to conduct initial assessment. Pt was not alert and oriented. Pt requested SW to call daughter Yani/DPMICHAEL for initial assessment. SW placed T/C to Yani and explained role. SW informed daughter that SW wrote phone number on white board and left "Your Discharge Planning Checklist" in pt's room. SW encouraged pt's daughter to contact SW for any discharge planning questions. Pt's insurance is Medicare and [facility] [employer]. PCP is Cachorro Serrato MD. Pt gave verbal consent to contact daughter/DPOA Yani Causey for discharge planning. DPOA/advanced directive ppw discussed - ppw completed and SW encouraged pt's daughter to provide a copy to the hospital. Pt owns a walker and a cane. Pt does not use DME for ambulation. Pt is independent with most ADLs. Pt needs assistance with meal prep. Pt's daughter stays with pt 4 days a week and pt's cousin stay with pt the remaining 3 days a week. Pt's daughter states pt is independent and has no documented cognitive deficits including dementia. Pt's daughter stated that this is her mothers first fall. Daughter states that she left the house to get a watermelon and came back and the pt had tripped up the stairs. Pt discussed in multidisciplinary rounds. Per multidisciplinary rounds, pt is medically stable for discharge home today - ordered pt to go home with HH RN PT OT up to 5x/week. F2F completed. YARED placed T/C to pt's daughter who will be arriving to hospital around 1300 today. SW discussed discharge and HH recommendation. Daughter agreeable. YARED left choice list in pt's room on window seal and informed daughter to review and contact YARED once choice has been made. YARED will refer pt to HH once pt's choice is determined. A: YARED assessed pt's capacity for self-care. SW does not have any concerns for pt's capacity for self-care. Pt is independent with ADLs at baseline. Pt does not have any concerns regarding discharge at this time. Pt to discharge home with HH RN PT OT up to 5x/week and 7-day a week care from pt's daughter and cousin. P: Pt to discharge home today with daughter to transport via POV. Pt to discharge and open with HH RN PT OT up to 5x/week. SW will follow-up with pt and daughter for HH choice. SW will continue to follow for needs. GEMA Thompson Addendum: 02/09/17 at 1219 by ERIC REID SS Amended: Links added.
--- NOTE | 2017-02-09 12:24 | PCM.DIMED ---
Discharge Instructions Date of Service Feb 09, 2017 Dates of Hospitalization Feb 08, 2017 at 00:53 Discharge Diagnosis Discharge Diagnosis R inf pubic rami fracture, AIDEE pre-renal, HTN, Afib, Hyperlipidemia Medication Instructions Additional med instructions Please restart coumadin on 02/10/17, hold the dose on 02/09/17 Diet Discharge Diet: Heart Healthy Activity Discharge Activity: Outpatient Physical Therapy Call your provider Call your provider for: Fever or Chills, Shortness of breath, Bleeding, Chest pain, Vomitting, Excessive diarrhea, Weakness (unilateral), Other Patient Instructions Patient Instructions Please note you have HH RN for PT/OT for 6 weeks to help with your recovery You may start taking coumadin on 02/10/17 Follow up INR in 4 days Assessment * pt is an 89yr old female here at [facility] for pubic fx from a [facility]. pt lives alone in [place] but states she has family that stays with her and that she is never alone. pt uses a cane for all ambulation but also has access to FWW. CLOF: pt was sitting on BSC upon entering room so bed mobliity was unable to be assessed at this time. pt completed sit to stand Min A -> CGA. pt had a LOB upon standing initialling d/t pain reports in the right groin area secondary to fx. pt ambulated 10ft using FWW CGA and was agreeable to sit in the chair upon finishing PT evaluation. pt is recommended at this time to d/c to SNF with PT and OT to increase strength for safe basic functional mobility and ADLs. Patient has a 1L oxygen requirement but she refused to continue to wear it at home when we discussed with her. Patient has no communicable diseases She requires no isolation precautions She has no wound care requirement She has no zepeda or rectal tube. She has no wound care needs Diet: Heart healthy May not crush medications Generics may be substituted for medications Follow-up plan Please f/u with your PCP in 1-2 weeks HH RN Pt/OT 5x wk for 6 weeks Follow up INR lab in 4 days Please F/U with ortho in one week Rosalinda Leone DO Feb 09, 2017 12:24
--- NOTE | 2017-02-09 12:24 | NUR ---
Social Work: Initial Assessment/Readiness for Discharge/Multi-Disciplinary Rounds D: EMR reviewed. Please see Initial Assessment linked to this note for more information. Pt is a 89 y/o female admitted [facility] for right hip pain, unwitnessed fall per H&P. Pt has a readmit risk score of 3. YARED met with pt at bedside to conduct initial assessment. Pt was not alert and oriented. Pt could not recall where she lives or what hospital she is at. YARED placed T/C to pt's son Cachorro. SW explained role and provided phone number. SW also wrote phone number on white board. SW left "Your Discharge Planning Checklist" in pt's room and encouraged pt's son to contact SW for any discharge planning questions. Per pt's son, pt lives at [facility] where she receives help from family and friends. Pt's son agreeable to new services recommendation. Pt's son agreeable to continue with [facility]. SW confirmed that pt is ready for discharge home today. Pt's son stated he will pick pt up after 1300. YARED updated RN - all agreeable to plan. Pt's insurance is [employer] and [email or web address]. PCP is Anabela Bah MD. DPOA/advanced directive ppw discussed - copy obtained last hospital stay. Pt owns a walker, cane, and bath bench. Pt uses a FWW for ambulation. Pt needs assistance with meal prep, bathing, chores, and feeding. Pt is currently open with [facility] RN PT MANAGED CARE ANALYST 3x/week. Pt discussed in multidisciplinary rounds. Per multidisciplinary rounds, pt is medically stable for discharge home today - ordered RN PT OT MANAGED CARE ANALYST 5x/week. YARED placed T/C to Radhika at [facility] and confirmed pt will need new F2F. YARED faxed F2F. Radhika confirmed they will resume care with pt tomorrow and they have access to pt's chart. A: Pt for whom has been deemed medically necessary. P: Pt to discharge home today with son to transport via POV. Pt to resume [facility] and open for new OT services. All services will be changed from 3x/week to 5x/week per new F2F. [facility] confirmed pt will be accepted with new order. SW will continue to follow for needs. Yomaira Knaus, BLOOD TYPER Addendum: 02/09/17 at 1242 by YOMAIRA REID SS Amended: Links added. Addendum: 02/09/17 at 2104 by YOMAIRA REID SS DISREGARD THIS NOTE - ENTERED ON WRONG PATIENT
--- NOTE | 2017-02-09 12:25 | PCM.DC.MED ---
Discharge Summary Date of Service Feb 09, 2017 Dates of Hospitalization Date of Hospital Admission Feb 08, 2017 at 00:53 Date of Discharge: Feb 09, 2017 Providers: Admitting Physician: Igor Cifuentes MD Primary Care Physician: Vinod Serrato MD Attending Physician: Rosalinda Campbell DO Diagnosis at Time of Discharge Diagnosis at Time of Discharge R inf pubic rami fracture, AIDEE pre-renal, HTN, Afib, Hyperlipidemia Consultations Ortho, PT/OT Procedures XRay, CTs & MRIs X-Ray Chest Interpretation Chest Xray Interpretation: IMPRESSION: No acute disease. Diffuse scarring as before CT Pelvis: CONCLUSION: There is slight cortical irregularity of the right inferior pubic ramus but I am more inclined to believe that this is an old/subacute fracture given its appearance. The bones appear osteoporotic. Hip/Pelvis X-Ray:IMPRESSION: No definite fractures. Suboptimal exam secondary to diffuse osteopenia Dictated by: Severiano Maharaj M.D. on 02/07/2017 at 20:48 Approved by: Severiano Maharaj M.D. on 02/07/2017 at 20:49 CT Head Interpretation IMPRESSION: No acute intracranial process. Dictated by: Severiano Maharaj M.D. on 02/07/2017 at 21:14 Approved by: Severiano Maharaj M.D. on 02/07/2017 at 21:16 Interpretation / Wet Read by: Interpret - Radiologist CT C-Spine Interpretation IMPRESSION: Mild anterior wedging of the T6 vertebral body which is technically indeterminate (new since 10/10/15 ). Please correlate clinically. Dictated by: Severiano Maharaj M.D. on 02/07/2017 at 20:51 Approved by: Severiano Maharaj M.D. on 02/07/2017 at 20:57 Interpretation / Wet Read by: Interpret - Radiologist ECG 12 Lead ECG Interpretation: atrial-paced complexes with a rate of [address] changes appreciated when compared with EKG from 01/16/2017, heart rate increase is new Time: 20:45 Interpreted by: ED physician Brief History Jennifer Rhodes is an 89-year-old female patient with past medical history significant for A. fib on warfarin, hypertension, osteoporosis, COPD, TIA, permanent pacemaker, multiple compression fractures of T11 and L1 presented to the ED via EMS because of right hip pain following a ground-level fall. Patient states that she fell on a step in her garage and hit her right hip on the cement floor. She states that she could have possibly hit her head also but that it is very vague and she is unsure. She denies loss of consciousness. She is complaining of right hip pain and groin pain as well as some mild neck pain. She states that it feels like a whiplash. The pain does not radiate anywhere else in her body. She reports to have sensation over her right hip and denies numbness and tingling. She denies fevers, chills, headaches, visual changes, chest pain, shortness of breath, abdominal pain, dysuria, and bowel changes. She notes nausea and vomiting. She lives in [place] by herself and often has family members visiting her. She is independent and uses a cane or a walker at home. In the ED, her vital signs are as follows temperature 37C, pulse 70, respiratory rate 18, blood pressure 159/57, 96% O2 sat on room air. CT of the pelvis showed slight cortical irregularity of the right inferior pubic ramus, CXR showed no acute disease, CT of the head showed no acute intracranial process , CT of spine showed mild anterior wedging of the T6 per every 4 body which is technically indeterminate. She was given IV Dilaudid for pain control. Hospital Course Jennifer Rhodes is an 89-year-old female patient with past medical history significant for A. fib on warfarin, hypertension, osteoporosis, COPD, TIA, permanent pacemaker, multiple compression fractures of T11 and L1 presented to the ED via EMS because of right hip pain following a ground-level fall. She is being admitted to observation for a right pubic ramus fracture, acute versus subacute. 1. Right inferior pubic ramus fracture, acute VS subacute, present on admission Likely secondary to the fall she experienced -CT of the pelvis showed is slight cortical irregularity of the right inferior pubic ramus -oxycodone as needed for pain -dr. trent is seeing the patient, recommend stopping Coumadin for just 2 days due to evulsion of hamstring muscle, she can be discharged from that after PT/ OT for 6 weeks, recommends walker for walking -Watch for any signs of bleeding -Physical therapy ordered . They Recommended discharged to SNF for PTOT -Family agreed to pay for SNF, pt refused home oxygen eval because she enjoys smoking 2. Acute kidney injury, present on admission -Likely prerenal due to dehydration -Cont IV fluids 3. Hypertension, present on admission -Continue home dose of metoprolol tartrate 25 mg by mouth twice a day -Ordered cardiac diet 4. History of Atrial fibrillation on warfarin -Patient is rate controlled with metoprolol -Discontinued Coumadin for [address] Murillo's request, she may start 02/11/17 5. History of Hyperlipidemia -Continue home dose of atorvastatin 6. COPD, chronic worsening -- Pt did nto want home oxygen as she likes to smoke -- WE recommend that she gets an eval at the receiving facility. CODE STATUS: DO NOT RESUSCITATE, DO NOT INTUBATE DVT prophylaxis: SCDs Bowel regimen when necessary Patient status: Patient is admitted under observation status with expected length of stay less than 2 midnights due to severity of presenting symptoms, risk of adverse event, complexity of treatment plan. Exam Vital Signs (Last) Date Time Temp Pulse Resp B/P Pulse Ox O2 Delivery O2 Flow Rate FiO2 02/09/17 04:52 37.0 64 16 137/59 95 Nasal Cannula 2.00 Exam Gen.: Sitting up in chair mildly dyspneic, pleasant HEENT: Normocephalic, atraumatic Heart: Systolic murmur, regular rate and rhythm Lungs: Diminished lung sounds in the upper lobes crackles and wheezes Abdomen: Flat and nondistended normal bowel sounds complaints of her bili being to large sized Extremities: Negative edema, Neck R JVD is present Neuro no focal deficits Psych: Negative for anxiety and agitation Test 02/07/17 20:45 02/08/17 06:30 02/08/17 22:50 02/08/17 23:29 Neutrophils (%) (Auto) 66.0% (40-74) Lymphocytes (%) (Auto) 25.0% (14-46) Monocytes (%) (Auto) 7.3% (4-12) Eosinophils (%) (Auto) 1.0% (0-5) Basophils (%) (Auto) 0.4% (0-3) Activated Partial Thromboplast Time 33.2sec (22.8-33.0) Magnesium Level 2.0mg/dL (1.6-2.6) Total Bilirubin 0.2mg/dL (0.0-1.2) Aspartate Amino Transf (AST/SGOT) 23U/L (0-50) Alanine Aminotransferase (ALT/SGPT) 16U/L (0-32) Alkaline Phosphatase 95U/L (25-165) Troponin T 0.010ug/L (0.0-0.011) Total Protein 7.0g/dL (6.4-8.4) Albumin 3.9g/dL (3.4-5.0) Hold Lane Top Tube Received (Received) White Blood Count 9.7th/mm3 (3.8-10.1) Red Blood Count 3.30mil/mm3 (3.90-5.20) Mean Corpuscular Volume 97.0fL (81-100) Mean Corpuscular Hemoglobin 31.2pg (27.0-35.0) Mean Corpuscular Hemoglobin Concent 32.2% (32.0-37.0) Red Cell Distribution Width 14.9% (12.3-15.4) Platelet Count 154bil/L (150-400) Hold Urine Received (Received) Urine Color Yellow (YELLOW) Urine Appearance Clear (CLEAR,HAZY) Urine pH 6.0 (5.0-8.0) Urine Specific [place] 1.015 (1.003-1.035) Urine Protein Tracemg/dL (NEG,TRACE) Urine Glucose (UA) Negativemg/dL (NEGATIVE) Urine Ketones Negativemg/dL (NEGATIVE) Urine Occult Blood Trace (NEGATIVE) Urine Nitrite Negative (NEGATIVE) Urine Bilirubin Negative (NEGATIVE) Urine Urobilinogen Normalmg/dL (NORMAL) Urine Leukocyte Esterase Negative (NEGATIVE) Urine RBC 0-2/hpf (0-2) Urine WBC 0-5/hpf (0-5) Urine Epithelial Cells Few/hpf (NONE-MOD) Urine Crystals None seen (NONE SEEN) Urine Bacteria Few/hpf (NONE-FEW) Urine Hyaline Casts Occasional/lpf (NONE) Urine Granular Casts None seen (NONE SEEN) Urine Waxy Casts None seen (NONE SEEN) Urine Red Blood Cell Casts None seen (NONE SEEN) Urine White Blood Cell Casts None seen (NONE SEEN) Urine Mucus None seen (None Seen) Urine Trichomonas None seen (NONE SEEN) Urine Yeast None (NONE SEEN) Urinalysis Comment None Urine Culture Reflexed Not indicated Test 02/09/17 05:10 Hemoglobin 9.9g/dL (12.0-15.6) Hematocrit 30.9% (35.0-46.0) Prothrombin Time 18.2sec (8.1-12.5) Prothromb Time International Ratio 1.68ratio Sodium Level 140mEq/L (134-144) Potassium Level 4.5mEq/L (3.5-5.2) Chloride Level 106mEq/L (97-108) Carbon Dioxide Level 25mmol/L (18-29) Blood Urea Nitrogen 31mg/dL (8-27) Creatinine 0.94mg/dL (0.57-1.00) Estimat Glomerular Filtration Rate 80mL/min (>59) Glucose Level 113mg/dL (60-99) Calcium Level 9.2mg/dL (8.5-10.1) Discharge Medications Discharge Medications Atorvastatin Calcium (Atorvastatin Calcium) 10 Mg Tablet 20 MG PO HS Prescribed by: KERI HINDS MD Brimonidine Tartrate (Alphagan P) 5 Ml Drops 1 GTT BOTH_EYES QAM (Reported) Metoprolol Tartrate (Metoprolol Tartrate) 25 Mg Tablet 25 MG PO BID (Reported) Warfarin Sodium (Warfarin Sodium) 2 Mg Tablet 3-4 MG PO DAILY (Reported) Alternate 3mg one day, 4mg next day As needed Acetaminophen (Acetaminophen) 325 Mg Tablet 0.5 TAB PO Q4H PRN PRN For Pain ( Reported) Tramadol (Tramadol) 50 Mg Tablet 50 MG PO DAILY PRN PRN For Pain Prescribed by: ROSALINDA CAMPBELL, DO Additional med instructions Please restart coumadin on 02/10/17, hold the dose on 02/09/17 Followup Plan Follow-up plan Please f/u with your PCP in 1-2 weeks ELOISA RN Pt/OT 5x wk for 6 weeks Follow up INR lab in 4 days Discharge Diet: Heart Healthy Discharge Activity: Limited until seen by PCP Patient Instructions Please note you have ELOISA RN for PT/OT for 6 weeks to help with your recovery You may start taking coumadin on 02/10/17 Follow up INR in 4 days Assessment * pt is an 89yr old female here at [facility] for pubic fx from a GLF. pt lives alone in [place] but states she has family that stays with her and that she is never alone. pt uses a cane for all ambulation but also has access to FWW. CLOF: pt was sitting on BSC upon entering room so bed mobliity was unable to be assessed at this time. pt completed sit to stand Min A -> CGA. pt had a LOB upon standing initialling d/t pain reports in the right groin area secondary to fx. pt ambulated 10ft using FWW CGA and was agreeable to sit in the chair upon finishing PT evaluation. pt is recommended at this time to d/c to SNF with PT and OT to increase strength for safe basic functional mobility and ADLs. Time spent 30 min Rosalinda Campbell DO Feb 09, 2017 12:25
[2017-02-09] MEDS ORDERED: TRAM50TA2 PO (12:30)
--- NOTE | 2017-02-09 14:01 | NUR ---
Social Work: Continued Discharge Planning Social Work: Initial Assessment/Readiness for Discharge/Multi-Disciplinary Rounds D: EMR reviewed. Please see Initial Assessment linked to this note for more information. Pt is an 89 y/o female admitted [facility] for public ramus fx per H&P. Pt has a readmit risk score of 4. SW met with pt at bedside to conduct initial assessment. Pt was not alert and oriented. Pt requested SW to call daughter Yani/DPOA for initial assessment. SW placed T/C to Yani and explained role. SW informed daughter that SW wrote phone number on white board and left "Your Discharge Planning Checklist" in pt's room. SW encouraged pt's daughter to contact SW for any discharge planning questions. Pt's insurance is Medicare and [facility] [employer]. PCP is Cachorro Serrato MD. Pt gave verbal consent to contact daughter/DPOA Yani Causey for discharge planning. DPOA/advanced directive ppw discussed - ppw completed and SW encouraged pt's daughter to provide a copy to the hospital. Pt owns a walker and a cane. Pt does not use DME for ambulation. Pt is independent with most ADLs. Pt needs assistance with meal prep. Pt's daughter stays with pt 4 days a week and pt's cousin stay with pt the remaining 3 days a week. Pt's daughter states pt is independent and has no documented cognitive deficits including dementia. Pt's daughter stated that this is her mothers first fall. Daughter states that she left the house to get a watermelon and came back and the pt had tripped up the stairs. Pt discussed in multidisciplinary rounds. Per multidisciplinary rounds, pt is medically stable for discharge home today - ordered pt to go home with HH RN PT OT up to 5x/week. F2F completed. YARED placed T/C to pt's daughter who will be arriving to hospital around 1300 today. SW discussed discharge and HH recommendation. Daughter agreeable. YARED left choice list in pt's room on window seal and informed daughter to review and contact SW once choice has been made. YARED will refer pt to HH once pt's choice is determined. A: YARED assessed pt's capacity for self-care. SW does not have any concerns for pt's capacity for self-care. Pt is independent with ADLs at baseline. Pt does not have any concerns regarding discharge at this time. Pt to discharge home with HH RN PT OT up to 5x/week and 7-day a week care from pt's daughter and cousin. P: Pt to discharge home today with daughter to transport via POV. Pt to discharge and open with HH RN PT OT up to 5x/week. SW will follow-up with pt and daughter for HH choice. SW will continue to follow for needs. GEMA Thompson Addendum: 02/09/17 at 1407 by ERIC REID SW met with pt's daughter and PT. Pt's daughter would like private pay SNF - choice list provided. updated. MD agreeable. Pt and family chose [facility]. T/C to Mathew at [facility] who quoted $260 for semi-private room and $420 for private. Pt must pay 2-weeks up front. YARED updated pt's daughter. Daughter suggested $260 option but will follow-up with pt for choice. YARED informed daughter that payment of $3640 ($260/day x 14 days) will be due upon admission. Daughter will discuss with pt and follow-up with SW. SW to follow-up with MD on family decision - MD will cancel HH order and add SNF order - PT recommends SNF but pt doesn't qualify for insurance coverage because pt is an OBS pt with Medicare. ordered HH as alternative option but will order SNF if family is able to private pay for stay. GEMA Thompson
[2017-02-09 14:49] VITALS: BP 114/60; PULSE 64; RESP 16; O2SAT 95
--- NOTE | 2017-02-09 15:19 | NUR ---
Long Term Transfer : Called and left message for Mathew regarding referral sent and needing to know if patient has been accepted and would they be able to take patient tonight. Updated CONE SEWER
--- NOTE | 2017-02-09 15:56 | NUR ---
Social Work: Readiness for Discharge D: EMR reviewed. Pt is on day 1 of hospitalization. YARED met with pt's daughter and PT. Pt's daughter would like private pay SNF - choice list provided. updated. MD agreeable. Pt and family chose [facility]. T/C to Mathew at [facility] who quoted $260 for semi-private room and $420 for private. Pt must pay 2-weeks up front. SW updated pt's daughter. Daughter suggested $260 option but will follow-up with pt for choice. SW informed daughter that payment of $3640 ($260/day x 14 days) will be due upon admission. Daughter and pt agreeable. Daughter will pay $3640 upon transport. SW received T/C from [facility] confirming they will accept pt and transport pt at 1630 today. YARED updated RN, pt, and family - all agreeable to discharge plan and transport time. YARED completed transfer packet and left at RN station. A: Pt for whom a SNF has been deemed medically necessary . P: Pt to discharge to [facility] with [facility] to transport at 1630 today. Transfer packet completed and left at RN station for pick-up. YARED updated family and RN. All agreeable to discharge plan and transport time. GEMA Thompson
--- NOTE | 2017-02-09 16:30 | NUR ---
Social Work: Discharge D: EMR reviewed. Pt is on day 1 of hospitalization. Pt to discharge to [facility] private-pay - daughter will pay $3640 upon transport. SW received T/C from [facility] confirming they will accept pt and transport pt at 1630 today. YARED updated RN, pt, and family - all agreeable to discharge plan and transport time. SW completed transfer packet and left at RN station. A: Pt for whom a SNF has been deemed medically necessary . P: Pt to discharge to [facility] with [facility] to transport at 1630 today. Transfer packet completed and left at RN station for pick-up. YARED updated family and RN. All agreeable to discharge plan and transport time. GEMA Thompson
--- NOTE | 2017-02-09 16:34 | NUR ---
DC Pt leaves via transport to [facility]. Al belongings with daughter and some with pt to facility. FWW with pt to facility. Pt transported via WC to van then placed in seat and plan to transport via WC from van once to facility. RA SPO2 at rest 92%. Plan to transport on RA. Report phones into facility. Care discontinues
== END 2017-02-09 16:34 ==
LOC: EDBD 18:54 → SED 18:54 → OSC 02-08 00:53 → INTOOBSV 02-08 00:53 → OSC 02-08 01:30
PROVIDERS: ADMIT Hospitalist; ATTEND Hospitalist
DX: S32.691A Other specified fracture of right ischium, initial encounter for closed fracture (principal); N17.9 Acute kidney failure, unspecified; I10 Essential (primary) hypertension; I48.91 Unspecified atrial fibrillation; E78.5 Hyperlipidemia, unspecified; M48.56XA Collapsed vertebra, not elsewhere classified, lumbar region, initial encounter for fracture; M48.54XA Collapsed vertebra, not elsewhere classified, thoracic region, initial encounter for fracture; M25.551 Pain in right hip; R11.2 Nausea with vomiting, unspecified; M81.0 Age-related osteoporosis without current pathological fracture; K21.9 Gastro-esophageal reflux disease without esophagitis; K44.9 Diaphragmatic hernia without obstruction or gangrene; F17.210 Nicotine dependence, cigarettes, uncomplicated; J44.9 Chronic obstructive pulmonary disease, unspecified; W10.2XXA Fall (on)(from) incline, initial encounter; Y93.01 Activity, walking, marching and hiking; Y92.015 Private garage of single-family (private) house as the place of occurrence of the external cause; Y99.8 Other external cause status; Z88.0 Allergy status to penicillin; Z88.2 Allergy status to sulfonamides; Z88.8 Allergy status to other drugs, medicaments and biological substances; Z79.01 Long term (current) use of anticoagulants; Z95.0 Presence of cardiac pacemaker; Z86.73 Personal history of transient ischemic attack (TIA), and cerebral infarction without residual deficits; Z90.710 Acquired absence of both cervix and uterus; Z66 Do not resuscitate
CPT/HCPCS: 36415; 70450; 71010; 72125; 72192; 73501; 80048; 80053; 81000; 83735; 84484; 85014; 85018; 85025; 85027; 85610; 85730; 93005; 96374; 96375; 96376; 97162; 97530; 99285; G8978; G8979; J1170; J2405